=== PATIENT | male | born 1995 | race Caucasian/White ===

== ENCOUNTER 2022-05-05 00:10 | Emergency (ER) | payer SELFPAY ==
[2022-05-05 00:22] VITALS: BP 137/82; PULSE 87; RESP 18; TEMP 36.8; O2SAT 98; BMI 25.0
--- NOTE | 2022-05-05 01:49 | PC.NURSE ---
Pt. will not open eye for assessment until he calms down. Pt. rocking in bed and grabbing his hair. Pt. and girlfriend lying in bed.
--- NOTE | 2022-05-05 01:50 | ED_ITS ---
HPI - Eye Problem General: Chief complaint: Eye Problems Stated complaint: Left Eye Pain Time Seen by Provider: 05/05/22 01:32 Source: patient History of Present Illness: 27-year-old male who was moving a couch around 11 or midnight tonight. He had the couch up, and a spring struck him in the left thigh. He complains of blurry vision, although his vision is intact and improving since the injury. He also complains of some pain, over the eye and in the eye, not necessarily behind the eye. He has a swollen upper eyelid as well MD chief complaint: eye pain and eye injury Onset (ago): hour(s) Onset description: sudden Duration: constant Location: left eye Eye Symptoms: burning and blurry vision Place: home Mechanism: direct trauma Severity: moderate If Pain, Quality: burning and aching Context: other Associated symptoms: Reports headache(s) (mild); Denies fever(s) or vomiting Treatments Prior to Arrival: other Review of Systems Const: Denies: fever(s) Eyes: Reports: blurry vision and eye discomfort; Denies: photophobia or eye discharge ENMT: Denies: throat pain Card: Denies: chest pain GI: Denies: vomiting Neuro: Reports: headache(s) (mild) PFS ED PFSH: Medical History No pertinent family history No pertinent past medical history Physical Exam 2 Const: GENERAL APPEARANCE: cooperative and anxious ORIENTATION/CONSCIOUSNESS: Yes awake, Yes oriented to person, Yes oriented to place and Yes oriented to time HENMT: COMMON NORMALS: normocephalic, atraumatic and Normal external nose present HEAD & SCALP: normocephalic and atraumatic FACE & SINUS: no edema NOSE: Normal external nose present and Normal nares present Eye: COMMON NORMALS: Equal, round and reactive pupils present and EOMs intact bilaterally GENERAL EYE: normal light reflex VISUAL MONTERO: No peripheral vision loss and No central vision loss ALIGNMENT: Yes alignment normal EYELID: eyelid abnormality left upper eyelid (small abrasion with ecchymosis) erythema and tenderness CONJUNCTIVA: Yes conjunctival abnormal positive left conjunctival injection; without subconjunctival hemmorhages CORNEA: Yes corneas normal PUPIL: Yes Equal, round and reactive pupils present EOM: Yes EOM abnormal DIRECT OPHTHALMOSCOPY: Yes normal light reflex Neck/C-Spine: COMMON NORMALS: full ROM GENERAL: Yes trachea midline Chest: COMMONS NORMALS: normal inspection of the chest Resp: COMMON NORMALS: normal respiratory effort Cardio: COMMON NORMALS: regular rate and regular rhythm RATE: regular rate RHYTHM: regular rhythm Neuro: SENSORIUM/ORIENTATION: Yes oriented to person, Yes oriented to place and Yes oriented to time Course Vital Signs: Vital signs: Vital Signs Temperature 98.3 F 05/05/22 00:22 Pulse Rate 87 05/05/22 00:22 Respiratory Rate 18 05/05/22 00:22 Blood Pressure 137/82 05/05/22 00:22 Pulse Oximetry 98 05/05/22 00:22 Oxygen Delivery Me thod 05/05/22 00:22 MDM - Eye Problem Medical Decision Making No sign of globe injury on exam. No pupil irregularity. Good red reflex of his retina. Vision is intact. Pupil is reactive. Extraocular muscles are normal. He does have some eyelid swelling. Ophthalmology follow-up Discharge Plan Discharge Patient Disposition: Home Clinical Impression: Contusion, eyelid Qualifiers: Encounter type: subsequent encounter Laterality: left Qualified Code(s): S00.12XD - Contusion of left eyelid and periocular area, subsequent encounter Contusion of eye, left Qualifiers: Encounter type: subsequent encounter Qualified Code(s): S05.12XD - Contusion of eyeball and orbital tissues, left eye, subsequent encounter Condition: Stable Prescriptions: No Action Maxitrol 3.5mg/mL-10,000 unit/mL-0.1 % drops,suspension 1 drp ophthalmic (eye) Q8H 5 Days Qty: 5 0RF Rx Instructions: 1 drop in left eye Q8 for the next 5 days. Discharge Orders: Discharge ED (Routine); Ordered 05/05/22 Ordered By: Chencho Gore Referrals: Weston Farias MD [Physician] - 1-3 days Discharge Diet: Advance as tolerated Activity Restrictions/Additional Instructions: Sleep with the head of your bed elevated for the next week. Use drops every 6 hours while awake for the first 36 hours, then as needed. Follow-up with ophthalmology next week. Call on Saturday for an appointment. The number is listed above. 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
[2022-05-05] MEDS: ketorolac 0.5% Op 5 mL Btl 1 DROP EYE-LEFT (02:41)
== END 2022-05-05 02:44 | disposition home or self-care (01) ==
PROVIDERS: Emergency Provider Emergency Medicine
DX: S00.12XA Contusion of left eyelid and periocular area, initial encounter (principal); S05.12XA Contusion of eyeball and orbital tissues, left eye, initial encounter; W20.8XXA Other cause of strike by thrown, projected or falling object, initial encounter
CPT/HCPCS: 99283

== ENCOUNTER 2022-05-05 22:44 | Emergency (ER) | payer SELFPAY ==
[2022-05-05 22:59] VITALS: BP 134/89; PULSE 66; RESP 16; TEMP 36.6; O2SAT 99; BMI 25.0
--- NOTE | 2022-05-06 00:44 | W.ED.EYEPROB ---
HPI - Eye Problem General: Chief complaint: Eye Problems Stated complaint: Eye drainage Time Seen by Provider: 05/06/22 00:28 History of Present Illness: Patient is a 27-year-old male comes to the ED with left eye complaint. Patient was seen here in the ED last night on May 05 for same complaint. Patient had a spring from a couch mattress hit him in the left eye. He was diagnosed with a contusion of left eye and left eyelid was discharged home. Today he comes into the ED because he had some clear drainage out of his left eye and a little bit of clear drainage out of his nose today. Denies any other acute change with left eye. Denies any change in vision. Just wanted to get it checked out. Eye pain has improved. He is set up to go to eye clinic and see Dr. Farias on Saturday morning. Associated symptoms: Denies fever(s), headache(s), nausea, neck pain or vomiting Review of Systems Const: Denies: fever(s), chills or fatigue Eyes: Reports: eye discomfort (Left eye) and eye discharge (Left eye); Denies: change in vision ENMT: Denies: throat pain, odynophagia, nasal discharge or nasal congestion Card: Denies: chest pain, palpitations, edema, swelling of feet/ankles, dyspnea on exertion or orthopnea Resp: Denies: dyspnea, productive cough or non-productive cough GI: Denies: abdominal pain, nausea, vomiting, diarrhea, constipation or hematochezia : Denies: flank pain, difficulty urinating, dysuria or hematuria Musc: Denies: neck pain, back pain or extremity swelling Skin/Breast: Denies: rash or new lesions Neuro: Denies: headache(s), numbness in extremities or weakness in extremities [facility] ED PFSH: Medical History No pertinent family history No pertinent past medical history Physical Exam Const: COMMON NORMALS: no acute distress, patient oriented x3 and alert GENERAL APPEARANCE: cooperative HENMT: COMMON NORMALS: normocephalic and Normal external nose present HEAD & SCALP: normocephalic NOSE: Normal external nose present and No nasal discharge present; no Epistaxis present MOUTH: Normal oral and palatal mucosa present THROAT: posterior oropharynx normal and uvula midline Eye: COMMON NORMALS: Equal, round and reactive pupils present and EOMs intact bilaterally PERIORBITAL: periorbital findings abnormal positive left periorbital swelling and periorbital erythema EYELID: eyelid abnormality left upper eyelid swelling and tenderness CONJUNCTIVA: Yes conjunctival abnormal positive left conjunctival injection PUPIL: Yes Equal, round and reactive pupils present OTHER: No visible drainage out of left eye. Neck/C-Spine: COMMON NORMALS: supple GENERAL: Yes normal visual inspection Resp: COMMON NORMALS: normal respiratory effort, No retractions, No use of accessory muscles and clear to auscultation bilaterally AUSCULTATION: clear to auscultation bilaterally Cardio: COMMON NORMALS: regular rate, regular rhythm, S1 normal heart sound present, S2 normal heart sound present, No gallops present (Cardio), No clicks present (Cardio), No murmurs present (Cardio) and Peripheral pulses 2+ throughout RATE: regular rate RHYTHM: regular rhythm HEART SOUNDS: S1 normal heart sound present and S2 normal heart sound present PERIPHERAL PULSES: Peripheral pulses 2+ throughout GI: COMMON NORMALS: Normal to inspection, nondistended, normoactive bowel sounds present, Soft to palpation, non-tender and no masses PALPATION: Yes Soft to palpation : COMMON NORMALS: Yes no CVA tenderness BLADDER/KIDNEY EXAM: Yes no CVA tenderness Back/Pelvis: COMMON NORMALS: no CVA tenderness Extremity: COMMON NORMALS: normal to inspection Neuro: COMMON NORMALS: patient oriented x3 SENSORIUM/ORIENTATION: Yes alert GAIT: Yes Normal gait present Skin: GENERAL SKIN EXAM: dry skin Course Vital Signs: Vital signs: Vital Signs Temperature 97.9 F 05/05/22 22:59 Pulse Rate 66 05/05/22 22:59 Respiratory Rate 16 05/05/22 22:59 Blood Pressure 134/89 05/05/22 22:59 Pulse Oximetry 99 05/05/22 22:59 Oxygen Delivery Me thod 05/05/22 22:59 MDM - Eye Problem Medical Decision Making Patient is a 27-year-old male comes to the ED with left eye complaint. Patient was seen here in the ED last night on May 05 for same complaint. Patient had a spring from a couch mattress hit him in the left eye. He was diagnosed with a contusion of left eye and left eyelid was discharged home. Today he comes into the ED because he had some clear drainage out of his left eye and a little bit of clear drainage out of his nose today. Denies any other acute change with left eye. Denies any change in vision. Vitals are stable. Exam of patient shows left periorbital swelling along with left upper eyelid swelling and tenderness. He has conjunctival injection of the left. No visible drainage in the left eye. Rest of exam is benign patient was given a dose of Maxitrol drops here in the ED and was discharged home with some Maxitrol eyedrops. He was told to follow-up with Dr. Farias at the eye clinic on Saturday. Patient understood and agreed with plan. Discharge Plan Discharge Patient Disposition: Home Clinical Impression: Contusion, eyelid Qualifiers: Encounter type: subsequent encounter Laterality: left Qualified Code(s): S00.12XD - Contusion of left eyelid and periocular area, subsequent encounter Contusion of eye, left Qualifiers: Encounter type: subsequent encounter Qualified Code(s): S05.12XD - Contusion of eyeball and orbital tissues, left eye, subsequent encounter Condition: Stable Prescriptions: New Maxitrol 3.5mg/mL-10,000 unit/mL-0.1 % drops,suspension 1 drp ophthalmic (eye) Q8H 5 Days Qty: 5 0RF Rx Instructions: 1 drop in left eye Q8 for the next 5 days. Discharge Orders: Discharge ED (Routine); Ordered 05/06/22 Ordered By: Robin Estevez Discharge Diet: Regular Discharge Activity: Resume usual activity Activity Restrictions/Additional Instructions: Follow-up with Dr. Farias at the eye clinic on SaturdayMay 07 for further evaluation of left eye. Continue taking all medications as previously prescribed. Return to the ER or your medical provider if condition worsens. Please read and understand discharge instructions. Thank you for choosing [facility] for your healthcare needs today. Please realize this is an emergency room and that we are providing you with a medical screening exam and this may not be complete and all inclusive of all the testing and or work up that you may need to determine your ailment or severity of your illness. It is very important that you follow up as instructed or that you return to the Emergency Department should you have concerns or if your condition changes or worsens in any way. Coding Level of Care Code ED Biomedical Photographer for [facility] [facility] Exam Comprehensive
[2022-05-06] MEDS: neomycin-poly-dex Op 5 mL Btl 2 DROP EYE-LEFT (01:04)
== END 2022-05-06 01:05 | disposition home or self-care (01) ==
PROVIDERS: Emergency Provider Physician Assistant
DX: S00.12XA Contusion of left eyelid and periocular area, initial encounter (principal); S05.12XA Contusion of eyeball and orbital tissues, left eye, initial encounter; W20.8XXA Other cause of strike by thrown, projected or falling object, initial encounter
CPT/HCPCS: 99283

== ENCOUNTER 2022-12-06 18:59 | Emergency (ER) | payer MEDICAID, SELFPAY ==
--- NOTE | 2022-12-06 19:06 | CTR_ITS ---
PROCEDURE INFORMATION: Exam: CT Head Without Contrast Exam date and time: 12/06/2022 7:54 PM Age: 27 years old Clinical indication: Other: Seizure TECHNIQUE: Imaging protocol: Computed tomography of the head without contrast. Radiation optimization: All CT scans at this facility use at least one of these dose optimization techniques: automated exposure control; mA and/or kV adjustment per patient size (includes targeted exams where dose is matched to clinical indication); or iterative reconstruction. REPORTING DATA: Count of CT and Cardiac NM exams in prior 12 months: This patient has received 0 known CTs and 0 known cardiac nuclear medicine studies in the 12 months prior to the current study. COMPARISON: CT head wo con* [id number] 01/06/2016 8:34 PM RADIATION DOSE METRICS: Total DLP (mGy-cm): 1071.48 FINDINGS: Brain: No focal hemorrhage or midline shift is identified. Cerebral ventricles: No ventriculomegaly or evidence of acute hydrocephalus. Paranasal sinuses: The partially assessed sinuses are grossly clear. Only minimal bilateral ethmoid air cell mucosal thickening. Mastoid air cells: Visualized mastoid air cells are well aerated. Bones/joints: No displaced skull fracture is noted. Soft tissues: Unremarkable. CT/CT head wo con* [id number] IMPRESSION: No acute intracranial abnormality.
--- NOTE | 2022-12-06 19:06 | ECG_ITS ---
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 Measurements Intervals [place] Rate: 94 P: 56 [place]: 147 QRS: 84 QRSD: 89 T: 53 QT: 325 QTc: 407 Interpretive Statements SINUS RHYTHM No previous ECG available for comparison Electronically Signed On 12-06-2022 22:54:39 CDT by Kavon Fuentes M.D. [id number]
[2022-12-06 19:07] VITALS: BP 138/87; PULSE 93; RESP 18; TEMP 36.6; O2SAT 99; BMI 25.0
--- NOTE | 2022-12-06 19:07 | ED_ITS ---
HPI - Seizure General: Chief Complaint: Seizure Stated Complaint: SEIZURES Time Seen by Provider: 12/06/22 19:02 Source: patient and EMS Mode of arrival: EMS Limitations: no limitations History of Present Illness: HPI Narrative: 27-year-old male who is here from long-term he had had a possible seizure there he states he felt quite anxious per the long-term very appear to have some shaking and a short postictal. He is now awake he complains of a slight headache and some neck pain he denies any chest pain denies any vomiting or diarrhea. Associated symptoms: Deny chest pain, chills or fever(s) Review of Systems Const: Denies: fever(s), chills, body aches or change in appetite Eyes: Denies: blurry vision or eye discomfort ENMT: Denies: throat pain or dental pain Card: Denies: chest pain Resp: Denies: dyspnea GI: Denies: abdominal pain, nausea, vomiting or diarrhea : Denies: dysuria Musc: Denies: neck pain or back pain Skin/Breast: Denies: rash Neuro: Reports: seizure-like activity Psych: Denies: depression Lupillo/Lymph: Denies: easy bruising All/Imm: Denies: urticaria PFSH ED PFSH: Medical History No pertinent family history No pertinent past medical history Social History (Updated 12/06/22 @ 19:08 by Rory Peters MD) Substance/Drug Use: unknown Physical Exam Const: COMMON NORMALS: no acute distress, patient oriented x3 and healthy appearing HENMT: COMMON NORMALS: normocephalic and atraumatic HEAD & SCALP: normocephalic and atraumatic Eye: COMMON NORMALS: Equal, round and reactive pupils present and EOMs intact bilaterally PUPIL: Yes Equal, round and reactive pupils present Neck/C-Spine: COMMON NORMALS: full ROM and supple Chest: COMMONS NORMALS: normal inspection of the chest and normal palpation of entire chest wall Resp: COMMON NORMALS: normal respiratory effort, No retractions, No use of accessory muscles and clear to auscultation bilaterally AUSCULTATION: clear to auscultation bilaterally Cardio: COMMON NORMALS: regular rate, regular rhythm and No murmurs present (Cardio) RATE: regular rate RHYTHM: regular rhythm GI: COMMON NORMALS: Normal to inspection, nondistended, normoactive bowel sounds present, Soft to palpation, non-tender and no masses PALPATION: Yes Soft to palpation Extremity: COMMON NORMALS: normal to inspection and full ROM Neuro: COMMON NORMALS: patient oriented x3, moves all extremities and no focal motor deficits Psych: COMMON NORMALS: mental status grossly normal, Normal thought process present and cooperative THOUGHT PROCESS: Normal thought process present Skin: COMMON NORMALS: no rashes or lesions noted and no wounds GENERAL SKIN EXAM: no rashes or lesions noted Course Vital Signs: Vital signs: Vital Signs Temperature 97.8 F 12/06/22 19:07 Pulse Rate 93 12/06/22 20:41 Respiratory Rate 16 12/06/22 20:41 Blood Pressure 153/84 12/06/22 20:41 Pulse Oximetry 94 12/06/22 20:41 Oxygen Delivery Me thod 12/06/22 19:14 MDM - Seizure MDM Narrative Medical decision making narrative: Patient presents here with a possible seizure he has been well-appearing here blood work CT head is normal he is stable for discharge back to long-term. Lab Data 12/06/22 18:49 12/06/22 18:49 Labs: Radiology Impressions Head CT 12/06/22 19:06 IMPRESSION: No acute intracranial abnormality. Laboratory Results WBC 6.8 10^3/uL (4.0-10.0) 12/06/22 18:49 RBC 5.92 10^6/uL (4.1-5.3) H 12/06/22 18:49 Hgb 16.7 g/dL (11.7-16.6) H 12/06/22 18:49 Hct 49.5 % (42.0-52.0) 12/06/22 18:49 MCV 83.6 fl (80-94) 12/06/22 18:49 MCH 28.2 pg (28.0-34.0) 12/06/22 18:49 MCHC 33.7 g/dL (30.0-36.0) 12/06/22 18:49 RDW 12.4 % (12.1-15.1) 12/06/22 18:49 Plt Count 352 10^3/cmm (130-400) 12/06/22 18:49 MPV 9.8 fL (7.4-10.4) 12/06/22 18:49 Neut % (Auto) 40.5 % 12/06/22 18:49 Lymph % (Auto) 46.1 % 12/06/22 18:49 Terrell % (Auto) 10.4 % 12/06/22 18:49 Eos % (Auto) 2.6 % 12/06/22 18:49 Baso % (Auto) 0.3 % 12/06/22 18:49 Neut # (Auto) 2.76 10^3/uL (1.8-7.7) 12/06/22 18:49 Lymph # (Auto) 3.2 10^3/uL (0.8-4.8) 12/06/22 18:49 Terrell # (Auto) 0.7 10^3/uL (0.2-0.9) 12/06/22 18:49 Eos # (Auto) 0.2 10^3/uL (0.0-0.8) 12/06/22 18:49 Baso # (Auto) 0.0 10^3/uL (0.0-0.1) 12/06/22 18:49 Nucleated RBC % (auto) 0 % 12/06/22 18:49 Nucleated RBCs # 0.0 /100WBC 12/06/22 18:49 Sodium 141 mmol/L (136-145) 12/06/22 18:49 Potassium 3.9 mmol/L (3.5-5.1) 12/06/22 18:49 Chloride 101 mmol/L (98-107) 12/06/22 18:49 Carbon Dioxide 25 mmol/L (22-29) 12/06/22 18:49 Anion Gap 18.9 (5-19) 12/06/22 18:49 BUN 14 mg/dL (6-20) 12/06/22 18:49 Creatinine 1.2 mg/dL (0.7-1.2) 12/06/22 18:49 GFR Calculation 71.6 mL/min (90-130) L 12/06/22 18:49 Glucose 93 mg/dL (65-115) 12/06/22 18:49 Calculated Osmolality 292 mOsm/kg (285-295) 12/06/22 18:49 Calcium 9.7 mg/dL (8.5-10.5) 12/06/22 18:49 Total Bilirubin 0.4 mg/dL (0.15-1.2) 12/06/22 18:49 AST 18 U/L (0-40) 12/06/22 18:49 ALT 24 U/L (0-41) 12/06/22 18:49 Alkaline Phosphatase 105 U/L (40-130) 12/06/22 18:49 Total Protein 7.8 g/dL (6.6-8.7) 12/06/22 18:49 Albumin 4.5 g/dL (3.5-5.2) 12/06/22 18:49 Globulin 3.3 g/dL (1.3-4.6) 12/06/22 18:49 EKG Data EKG 1: Attestation: I personally reviewed and interpreted this EKG as follows: EKG interpretation date: 12/06/22 EKG interpretation time: 19:20 Interpretation: nsr hr [address] or t wave abnormalities qrs 89 qtc 377 Discharge Plan Discharge Patient Disposition: Home Clinical Impression: Generalized seizure Prescriptions: No Action mupirocin 2 % ointment 1 applic topical BID 21 Days Qty: 22 2RF Rx Instructions: and apply to lesions on face Discharge Orders: Discharge ED (Routine); Ordered 12/06/22 Ordered By: Rory Peters Discharge Diet: Advance as tolerated Discharge Activity: Resume usual activity Patient Instructions: Seizures Coding Level 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
[2022-12-06 19:14] VITALS: BP 138/87; PULSE 104; RESP 16; O2SAT 99
[2022-12-06] MEDS: LORazepam 2 mg/mL INJ 1 mL 1 MG IVP (19:22)
[2022-12-06 19:44] LABS: Basophils % 0.3 %; Eosinophils # 0.2 10^3/uL (0.0-0.8); Eosinophils % 2.6 %; Hematocrit 49.5 % (42.0-52.0); Hemoglobin 16.7 g/dL (11.7-16.6); Lymphocytes # 3.2 10^3/uL (0.8-4.8); Lymphocytes % 46.1 %; Mean Corpuscular HGB Conc 33.7 g/dL (30.0-36.0); Mean Corpuscular Hemoglobin 28.2 pg (28.0-34.0); Mean Corpuscular Volume 83.6 fl (80-94); Mean Platelet Volume 9.8 fL (7.4-10.4); Monocytes # 0.7 10^3/uL (0.2-0.9); Monocytes % 10.4 %; Neutrophils # 2.76 10^3/uL (1.8-7.7); Neutrophils % 40.5 %; Nucleated Red Blood Cells % 0 %; Platelet Count 352 10^3/cmm (130-400); Red Blood Count 5.92 10^6/uL (4.1-5.3); Red Cell Distribution Width 12.4 % (12.1-15.1); White Blood Count 6.8 10^3/uL (4.0-10.0)
[2022-12-06 20:03] LABS: Alanine Aminotransferase 24 U/L (0-41); Albumin Level 4.5 g/dL (3.5-5.2); Alkaline Phosphatase 105 U/L (40-130); Anion Gap 18.9 (5-19); Aspartate Amino Transferase 18 U/L (0-40); Blood Urea Nitrogen 14 mg/dL (6-20); Calcium 9.7 mg/dL (8.5-10.5); Carbon Dioxide 25 mmol/L (22-29); Chloride 101 mmol/L (98-107); Globulin 3.3 g/dL (1.3-4.6); Glomerular Filtration Rate 71.6 mL/min (90-130); Glucose 93 mg/dL (65-115); Osmolality Calculated 292 mOsm/kg (285-295); Potassium 3.9 mmol/L (3.5-5.1); Sodium 141 mmol/L (136-145); Total Bilirubin 0.4 mg/dL (0.15-1.2); Total Protein 7.8 g/dL (6.6-8.7)
[2022-12-06 20:41] VITALS: BP 153/84; PULSE 93; RESP 16; O2SAT 94
--- NOTE | 2022-12-12 13:26 | DCPLANNER ---
Addendum entered by Chelsie Cruz 12/18/22 15:14: institutional asset manager called patient due to no primary care physician - no answer at this time Original Note: institutional asset manager called patient due to no primary care physician - no answer at this time
== END 2022-12-06 20:44 | disposition home or self-care (01) ==
PROVIDERS: Emergency Provider Emergency Medicine
DX: G40.89 Other seizures (principal)
CPT/HCPCS: 70450; 80053; 85025; 93005; 96374; 99285; J2060

== ENCOUNTER 2022-12-07 09:17 | Emergency (ER) | payer MEDICAID, SELFPAY ==
[2022-12-07 09:30] VITALS: BP 114/82; PULSE 94; RESP 15; TEMP 36.8; O2SAT 100; BMI 26.2
--- NOTE | 2022-12-07 09:30 | ED_ITS ---
HPI - Seizure General: Chief Complaint: Seizure Stated Complaint: seizure activity Time Seen by Provider: 12/07/22 09:22 Source: patient Mode of arrival: EMS History of Present Illness: HPI Narrative: 27-year-old male presents emergency room from local half-way. He was seen yesterday with complaints of possible seizure lab work and head CT were negative he was discharged back. Today he reports having an episode of feeling like the moffett were closing in he was breathing rapidly and he passed out when he woke up he was recovered shortly there was no witnessed tonic-clonic activity. No vomiting no diarrhea no loss of bowel or bladder control no tongue biting. He is not postictal at this time. MD complaint: possible seizure Onset (ago): minute(s) Witnessed: Yes - by Bystander Trauma: No Seizure History: No Associated symptoms: Deny chest pain, chills, confusion, cough, diaphoresis, fever(s), anorexia, malaise, rash, short of breath, syncope or weakness Review of Systems Const: Denies: fever(s), chills, malaise or diaphoresis ENMT: Denies: throat pain, ear or mastoid pain, nasal discharge or nasal congestion Card: Denies: chest pain or syncope Resp: Denies: dyspnea, productive cough or non-productive cough GI: Denies: abdominal pain, nausea, vomiting, hematemesis, coffee ground emesis, diarrhea, constipation, bloating, hematochezia or melena : Denies: flank pain, dysuria, urinary frequency or urinary urgency Skin/Breast: Denies: rash or pruritus Neuro: Denies: confusion PFSH ED PFSH: Medical History No pertinent family history No pertinent past medical history Course Vital Signs: Vital signs: Vital Signs Temperature 98.3 F 12/07/22 09:30 Pulse Rate 94 12/07/22 11:06 Respiratory Rate 16 12/07/22 12:00 Blood Pressure 125/75 12/07/22 12:00 Pulse Oximetry 95 12/07/22 12:00 Oxygen Delivery Me thod 12/07/22 09:30 MDM - Seizure MDM Narrative Medical decision making narrative: Labs reviewed previous imaging reviewed. CPKs normal patient was not particularly postictal when he arrived. Discussed with Dr. Rodriguez. Initially patient arrived we gave a gram of Keppra based on the reported history. Dr. Rodriguez does not advise discharging home on any antiseizure medications. These episodes are reported arced still questionable for actually seizure activity. Discussed with the patient may be conversion disorder anxiety. Would not recommend anticonvulsants based on discussing with Dr. Rodriguez. We will set him up for an outpatient EEG and follow-up with neurology. Medical Records Attestation: I reviewed the patient's medical records. Lab Data Attestation: I reviewed the patient's lab results. 12/07/22 09:39 12/07/22 09:39 Labs: Laboratory Results WBC 4.6 10^3/uL (4.0-10.0) 12/07/22 09:39 RBC 5.34 10^6/uL (4.1-5.3) H 12/07/22 09:39 Hgb 15.3 g/dL (11.7-16.6) 12/07/22 09:39 Hct 46.2 % (42.0-52.0) 12/07/22 09:39 MCV 86.5 fl (80-94) 12/07/22 09:39 MCH 28.7 pg (28.0-34.0) 12/07/22 09:39 MCHC 33.1 g/dL (30.0-36.0) 12/07/22 09:39 RDW 12.7 % (12.1-15.1) 12/07/22 09:39 Plt Count 274 10^3/cmm (130-400) 12/07/22 09:39 MPV 9.9 fL (7.4-10.4) 12/07/22 09:39 Neut % (Auto) 43.9 % 12/07/22 09:39 Lymph % (Auto) 43.5 % 12/07/22 09:39 Catron % (Auto) 9.1 % 12/07/22 09:39 Eos % (Auto) 3.3 % 12/07/22 09:39 Baso % (Auto) 0.2 % 12/07/22 09:39 Neut # (Auto) 2.02 10^3/uL (1.8-7.7) 12/07/22 09:39 Lymph # (Auto) 2.0 10^3/uL (0.8-4.8) 12/07/22 09:39 Catron # (Auto) 0.4 10^3/uL (0.2-0.9) 12/07/22 09:39 Eos # (Auto) 0.2 10^3/uL (0.0-0.8) 12/07/22 09:39 Baso # (Auto) 0.0 10^3/uL (0.0-0.1) 12/07/22 09:39 Nucleated RBC % (auto) 0 % 12/07/22 09:39 Nucleated RBCs # 0.0 /100WBC 12/07/22 09:39 Sodium 142 mmol/L (136-145) 12/07/22 09:39 Potassium 4.2 mmol/L (3.5-5.1) 12/07/22 09:39 Chloride 104 mmol/L (98-107) 12/07/22 09:39 Carbon Dioxide 28 mmol/L (22-29) 12/07/22 09:39 Anion Gap 14.2 (5-19) 12/07/22 09:39 BUN 15 mg/dL (6-20) 12/07/22 09:39 Creatinine 1.1 mg/dL (0.7-1.2) 12/07/22 09:39 GFR Calculation 79.1 mL/min (90-130) L 12/07/22 09:39 Glucose 98 mg/dL (65-115) 12/07/22 09:39 Calculated Osmolality 295 mOsm/kg (285-295) 12/07/22 09:39 Calcium 8.6 mg/dL (8.5-10.5) 12/07/22 09:39 Total Bilirubin 0.4 mg/dL (0.15-1.2) 12/07/22 09:39 AST 14 U/L (0-40) 12/07/22 09:39 ALT 19 U/L (0-41) 12/07/22 09:39 Alkaline Phosphatase 88 U/L (40-130) 12/07/22 09:39 Creatine Kinase 52 U/L (39-308) 12/07/22 09:39 Total Protein 6.7 g/dL (6.6-8.7) 12/07/22 09:39 Albumin 4.2 g/dL (3.5-5.2) 12/07/22 09:39 Globulin 2.5 g/dL (1.3-4.6) 12/07/22 09:39 Discharge Plan Discharge Patient Disposition: Home Clinical Impression: Seizure-like activity, Conversion disorder Condition: Stable Prescriptions: No Action Benadryl 50 mg Capsule 50 - 100 mg PO .ONE TIME DOSE Tylenol Ex Str Rapid Release 500 mg Tablet 1,000 mg PO Q6H PRN (Reason: Pain) Pepto-Bismol 262 mg Tablet,Chewable 524 mg PO .ONCE Discharge Orders: Discharge ED (Routine); Ordered 12/07/22 Ordered By: Jono Clarke Discharge Diet: Usual diet Discharge Activity: Increase activity as tolerated Patient Instructions: Opioid Safety, Pain Management Activity Restrictions/Additional Instructions: You were seen today for reports of seizure-like activity. Your laboratory tests and exam were not completely consistent with seizures. And previous head CT was negative. We reviewed your case with the on-call neurologist they recommend no medications at this time feel you can be discharged and recommend an outpatient EEG. Coding Level of Care Code ED Detective Supervisor for Blesis[facility] Gracia
--- NOTE | 2022-12-07 09:36 | PC.NURSE ---
seizure pads applied to bed rails.
--- NOTE | 2022-12-07 09:37 | PC.NURSE ---
PT ARRIVED WITH PAZ. PT LEFT IN HANDCUFFS PER PAZ.
--- NOTE | 2022-12-07 09:54 | PC.NURSE ---
PAZ STATES PT HAD 4 OTHER SEIZURES THROUGHOUT THE NIGHT LAST NIGHT.
[2022-12-07 09:56] LABS: Basophils % 0.2 %; Eosinophils # 0.2 10^3/uL (0.0-0.8); Eosinophils % 3.3 %; Hematocrit 46.2 % (42.0-52.0); Hemoglobin 15.3 g/dL (11.7-16.6); Lymphocytes % 43.5 %; Mean Corpuscular HGB Conc 33.1 g/dL (30.0-36.0); Mean Corpuscular Hemoglobin 28.7 pg (28.0-34.0); Mean Corpuscular Volume 86.5 fl (80-94); Mean Platelet Volume 9.9 fL (7.4-10.4); Monocytes # 0.4 10^3/uL (0.2-0.9); Monocytes % 9.1 %; Neutrophils # 2.02 10^3/uL (1.8-7.7); Neutrophils % 43.9 %; Nucleated Red Blood Cells % 0 %; Platelet Count 274 10^3/cmm (130-400); Red Blood Count 5.34 10^6/uL (4.1-5.3); Red Cell Distribution Width 12.7 % (12.1-15.1); White Blood Count 4.6 10^3/uL (4.0-10.0)
[2022-12-07 10:06] VITALS: PULSE 95; RESP 16; O2SAT 98
[2022-12-07 10:08] LABS: Alanine Aminotransferase 19 U/L (0-41); Albumin Level 4.2 g/dL (3.5-5.2); Alkaline Phosphatase 88 U/L (40-130); Anion Gap 14.2 (5-19); Aspartate Amino Transferase 14 U/L (0-40); Blood Urea Nitrogen 15 mg/dL (6-20); Calcium 8.6 mg/dL (8.5-10.5); Carbon Dioxide 28 mmol/L (22-29); Chloride 104 mmol/L (98-107); Creatine Phosphokinase 52 U/L (39-308); Globulin 2.5 g/dL (1.3-4.6); Glomerular Filtration Rate 79.1 mL/min (90-130); Glucose 98 mg/dL (65-115); Osmolality Calculated 295 mOsm/kg (285-295); Potassium 4.2 mmol/L (3.5-5.1); Sodium 142 mmol/L (136-145); Total Bilirubin 0.4 mg/dL (0.15-1.2); Total Protein 6.7 g/dL (6.6-8.7)
[2022-12-07 11:06] VITALS: PULSE 94; RESP 16; O2SAT 98
[2022-12-07 12:00] VITALS: BP 125/75; RESP 16; O2SAT 95
--- NOTE | 2022-12-10 14:12 | DCPLANNER ---
Addendum entered by Chelsie Cruz 01/29/23 15:21: Patient had a follow up appointment scheduled with neurology - patient did not attend appointment. Addendum entered by Chelsie Cruz 12/13/22 08:07: Patient has a follow up appointment scheduled for Monday, January 23, 2023 at 10:[address] Rodriguez at neurology. Original Note: manager english had message to schedule a follow up appointment for patient with neurology and an outpatient sleep deprived EEG. manager english sent patients information to the front office staff at neurology. Patients information will be printed and reviewed. Clinic will call patient with appointment information. manager english faxed signed order for the EEG to neurology. Clinic will call patient with appointment information.
--- NOTE | 2022-12-12 13:33 | DCPLANNER ---
Addendum entered by Chelsie Cruz 12/18/22 15:18: clerical manager called patient due to no primary care physician - no answer at this time Original Note: clerical manager called patient due to no primary care physician - no answer at this time
== END 2022-12-07 12:03 | disposition home or self-care (01) ==
PROVIDERS: Emergency Provider Family Medicine
DX: R56.9 Unspecified convulsions (principal); F44.4 Conversion disorder with motor symptom or deficit
CPT/HCPCS: 80053; 82550; 85025; 96365; 99284; J1953

== ENCOUNTER 2023-03-09 23:32 | Emergency (ER) | payer MEDICAID, SELFPAY ==
[2023-03-09 23:35] VITALS: BP 126/79; PULSE 85; RESP 16; TEMP 36.8; O2SAT 97
--- NOTE | 2023-03-10 01:30 | XRR_ITS ---
PROCEDURE INFORMATION: Exam: XR Right Finger(s) Exam date and time: 03/10/2023 1:37 AM Age: 28 years old Clinical indication: Injury or trauma; Right; Index finger; Patient HX: Laceration with swelling to 2nd finger to region of pip joint. ; Additional info: Index finger injury TECHNIQUE: Imaging protocol: Radiologic exam of the right fingers. Views: Minimum 2 views. COMPARISON: No relevant prior studies available. FINDINGS: Bones/joints: No acute fracture or reactive bony changes. Soft tissues: Swelling at the proximal interphalangeal joint. XR/XR finger RT min 2V 21139 IMPRESSION: Swelling at the proximal interphalangeal joint. No acute fracture or reactive bony changes.
[2023-03-10] MEDS: tetanus-dipt-pertussis 0.5 mL SDV IM (01:55)
[2023-03-10 02:00] VITALS: PULSE 71; RESP 14; O2SAT 97
[2023-03-10] MEDS: lidocaine 1% INJ 10 mL (per mL) 20 ML INJECTION (02:21)
--- NOTE | 2023-03-10 02:21 | PC.NURSE ---
lidocaine administered by Dr Gore
[2023-03-10] MEDS: oxyCODONE-APAP 5-325 mg Tablet 2 TAB PO (02:45)
[2023-03-10 02:55] VITALS: RESP 16; O2SAT 99
--- NOTE | 2023-03-10 05:42 | W.ED.EXTPRO ---
HPI - Extremity Problem General: Chief complaint: Extremity Injury, Upper Stated complaint: Rt hand-Finger cut Time Seen by Provider: 03/10/23 01:28 History of Present Illness: 28-year-old male who fell, his right hand went through a piece of wood. He sustained a laceration to his right index finger at the PIP. He complains of pain and swelling. Complaint: other Onset (ago): hour(s) Pain Consistency: constant Location: right and other (index finger) Quality: other Relieving factors: immobilization Exacerbating factors: other Associated symptoms: Deny chest pain or fever(s) Review of Systems Const: Denies: fever(s) Card: Denies: chest pain Resp: Denies: dyspnea GI: Denies: vomiting Skin/Breast: Reports: skin tenderness [facility] ED PFSH: Medical History No pertinent family history No pertinent past medical history Social History Smoking and tobacco status: never smoked Alcohol intake: never Substance/Drug Use: never Physical Exam Const: COMMON NORMALS: no acute distress GENERAL APPEARANCE: cooperative; not ill appearing and not frail appearing HENMT: COMMON NORMALS: normocephalic, atraumatic and Normal external nose present HEAD & SCALP: normocephalic and atraumatic FACE & SINUS: normal facial exam and face symmetric NOSE: Normal external nose present Eye: COMMON NORMALS: Equal, round and reactive pupils present and EOMs intact bilaterally PUPIL: Yes Equal, round and reactive pupils present Neck/C-Spine: GENERAL: Yes trachea midline Chest: CHEST: Yes Symmetrical chest wall rise Resp: COMMON NORMALS: normal respiratory effort, No retractions, No use of accessory muscles and clear to auscultation bilaterally AUSCULTATION: clear to auscultation bilaterally Cardio: COMMON NORMALS: regular rate and regular rhythm RATE: regular rate RHYTHM: regular rhythm GI: COMMON NORMALS: Normal to inspection, nondistended, normoactive bowel sounds present Extremity: NARRATIVE EXTREMITY EXAM: Examination of the right hand reveals a 1.5 centimeter laceration to the dorsum of the index finger at the PIP. Bleeding is controlled. Swelling is noted at the PIP. No deformity. Neuro: IRENE COMA SCALE: document GCS findings [place] coma scale eye opening: Spontaneous [place] coma scale verbal response: Orientated Irene coma scale motor response: Obey commands Irene coma scale total score: 15 SENSORY EXAM: Yes extremities (intact) Psych: COMMON NORMALS: speech normal SPEECH: Yes normal speech Skin: COMMON NORMALS: no rashes or lesions noted GENERAL SKIN EXAM: no rashes or lesions noted Procedures Laceration Laceration 1: Side (If applicable): right Size (cm): 1.5 Description: flap Depth: simple, single layer Local Anesthetic: lidocaine 1% Amount of anesthesia used (mL): 3 Pre-repair: wound explored, irrigated extensively, deep structures intact and extensive debridement Skin layer closed with: nylon Size (cm): 5-0 Number of sutures: 5 Technique: simple, interrupted Course Vital Signs: Vital signs: Vital Signs Temperature 98.2 F 03/09/23 23:35 Pulse Rate 71 03/10/23 02:00 Respiratory Rate 16 03/10/23 02:55 Blood Pressure 126/79 03/09/23 23:35 Pulse Oximetry 99 03/10/23 02:55 Oxygen Delivery Me thod Room Air 03/10/23 02:00 MDM - Extremity (Nontraumatic) Medical Decision Making X-ray reveals no foreign body, no fracture. Laceration is repaired with sutures. Tetanus is updated. He tolerated well. Outpatient follow-up for wound check and suture removal. Lab Data Radiology Impressions Finger X-Ray 03/10/23 01:30 IMPRESSION: Swelling at the proximal interphalangeal joint. No acute fracture or reactive bony changes. Discharge Plan Discharge Patient Disposition: Home Clinical Impression: Laceration of finger Condition: Stable Prescriptions: No Action Benadryl 50 mg Capsule 50 - 100 mg PO .ONE TIME DOSE Tylenol Ex Str Rapid Release 500 mg Tablet 1,000 mg PO Q6H PRN (Reason: Pain) Pepto-Bismol 262 mg Tablet,Chewable 524 mg PO .ONCE Discharge Orders: Discharge ED (Routine); Ordered 03/10/23 Ordered By: Chencho Gore Patient Instructions: Finger Laceration (ED) Activity Restrictions/Additional Instructions: Keep dry for 24 hours, then you may wash with soap and running water. Do not submerge in water until sutures are out. Sutures should come out in 7 to 10 days. Return for any problems. Ice can help with pain Coding Level of Care Code ED Log Snaker for Blessing Gracia
== END 2023-03-10 02:56 | disposition home or self-care (01) ==
PROVIDERS: Emergency Provider Emergency Medicine
DX: S61.210A Laceration without foreign body of right index finger without damage to nail, initial encounter (principal); W19.XXXA Unspecified fall, initial encounter; Z23 Encounter for immunization
CPT/HCPCS: 12001; 73140; 90715; 99283

== ENCOUNTER 2023-03-20 10:19 | Emergency (ER) | payer MEDICAID, SELFPAY ==
[2023-03-20 10:25] VITALS: BP 124/79; PULSE 90; RESP 16; TEMP 36.6; O2SAT 97; BMI 25.0
--- NOTE | 2023-03-20 10:52 | W.ED.EXTPRO ---
HPI - Extremity Problem General: Chief complaint: Extremity Problem,Nontraumatic Stated complaint: Right hand injury/swelling and stiches broke Time Seen by Provider: 03/20/23 10:29 Source: patient Mode of arrival: ambulatory Limitations: no limitations History of Present Illness: Patient is a 28-year-old male here for re-evaluation following a right index finger wound/laceration that was repaired here on 03/10. Patient states some of the stitches have broke and he is concerned about some wound dehiscence as well as swelling/some type of growth and redness. He denies numbness, tingling, loss of sensation. MD Complaint: extremity pain and extremity swelling Onset (ago): day(s) Pain Consistency: constant Location: right and upper extremity Radiation: none Relieving factors: nothing Exacerbating factors: nothing Associated symptoms: Reports no associated symptoms Review of Systems Musc: Reports: extremity pain (R index finger) [facility] ED PFSH: Medical History No pertinent family history No pertinent past medical history Social History Smoking and tobacco status: never smoked Alcohol intake: never Substance/Drug Use: never Physical Exam Const: COMMON NORMALS: no acute distress, average body habitus, no limitations, healthy appearing, alert and well nourished Extremity: GENERAL: Yes normal exam except as noted RIGHT UPPER EXTREMITY: Yes hand & digits OTHER: pt has some redness/swelling to dorsal R index PIP joint-he does maintain fairly good ROM and I clinically do not have any concern for tendon injury or septic PIP joint; several sutures no longer intact and there is some wound dehiscence; he has some type of granulomatous like formation/growth within the wound that he states is bothering him and wants it excised Neuro: SENSORIUM/ORIENTATION: Yes alert Course Vital Signs: Vital signs: Vital Signs Temperature 97.8 F 03/20/23 10:25 Pulse Rate 90 03/20/23 10:25 Respiratory Rate 16 03/20/23 10:25 Blood Pressure 124/79 03/20/23 10:25 Pulse Oximetry 97 03/20/23 10:25 Oxygen Delivery Me thod Room Air 03/20/23 10:25 MDM - Extremity (Nontraumatic) Medical Decision Making Patient here for re-evaluation of her right index finger laceration that was repaired approximately 10 days ago. He does have some wound dehiscence as well as the formation of some type of granulomatous growth. He has some redness and swelling present. He does maintain fairly good range of motion. I will go ahead and place him on Keflex. Sutures can be removed. He is requesting that I excise growth. I told him I am not going to cut around overlying a finger joint on an index finger on his dominant hand but that I can refer him to see Dr. Estevez. He is agreeable to this plan. Return to ED precautions given. Discharge Plan Discharge Patient Disposition: Home Clinical Impression: Injury of index finger Qualifiers: Encounter type: initial encounter Laterality: right Qualified Code(s): S69.91XA - Unspecified injury of right wrist, hand and finger(s), initial encounter Condition: Stable Prescriptions: New cephalexin 500 mg capsule 500 mg PO Q6H 7 Days Qty: 28 0RF No Action Benadryl 50 mg Capsule 50 - 100 mg PO .ONE TIME DOSE Tylenol Ex Str Rapid Release 500 mg Tablet 1,000 mg PO Q6H PRN (Reason: Pain) Pepto-Bismol 262 mg Tablet,Chewable 524 mg PO .ONCE Discharge Orders: Discharge ED (Routine); Ordered 03/20/23 Ordered By: Verónica Strong Coding Level of Care Code ED Clinical Lab Specialist for [facility] Gr[facility]
--- NOTE | 2023-03-20 11:06 | PC.NURSE ---
PT STATES HE PULLED 3 STITCHES OUT AT HOME, LEAVING 4 LEFT OF THE 7.
--- NOTE | 2023-03-20 12:35 | DCPLANNER ---
Addendum entered by Chelsie Cruz 03/22/23 09:04: unit manager received the following message regarding follow up appointment: attempt made to contact patient - number in chart states not in service. tried mom/step dad number on auth to discuss - not accepting msgs - will mail letter to call clinic to schedule cherry mcdermott (dr will supervising). If they can come in this morning we can see them at or saturday sometime w/ imelda. Original Note: unit manager had message to schedule a follow up appointment for patient with ortho. unit manager sent patients information to the front office staff at ortho. Patients information will be printed and reviewed. Clinic will call patient with appointment information.
--- NOTE | 2023-03-20 12:49 | DCPLANNER ---
hospice case manager called patient due to no primary care physician - no answer at this time, the number has been changed or disconnected.
== END 2023-03-20 11:09 | disposition home or self-care (01) ==
PROVIDERS: Emergency Provider Physician Assistant
DX: T81.33XA Disruption of traumatic injury wound repair, initial encounter (principal); X58.XXXA Exposure to other specified factors, initial encounter
CPT/HCPCS: 99281

== ENCOUNTER 2023-05-20 13:51 | Emergency (ER) | payer OTHER, MEDICAID, SELFPAY ==
[2023-05-20 14:03] VITALS: BP 144/93; PULSE 75; RESP 16; TEMP 36.6; O2SAT 100; BMI 25.7
--- NOTE | 2023-05-20 14:31 | W.ED.SKABFB ---
HPI - Skin/Abscess/Foreign Bdy General: Chief complaint: Extremity Injury, Upper Stated complaint: upper lip swelling Time Seen by Provider: 05/20/23 14:08 Source: patient Mode of arrival: ambulatory Limitations: no limitations History of Present Illness: Patient is a 28-year-old male who presents to ED today with a complaint of redness, swelling, pain to the right upper lip region that he noticed approximately 2 to 3 days ago. Patient states he has a known scar to the area from a previous dog bite 3 years ago and states for what ever reason the scar has seemed to become infected. He denies any new or recent injury or trauma or scabs to the area. MD complaint: abscess/boil Onset (ago): day(s) Tetanus up to date: yes Location: face Severity: moderate Pain Consistency: constant Relieving factors: none Exacerbating factors: none Context: none Associated symptoms: Reports no associated symptoms; Deny chills, fever(s), nausea or vomiting Treatments prior to arrival: none Review of Systems Const: Denies: fever(s), chills, body aches, fatigue or malaise Eyes: Denies: change in vision, blurry vision, photophobia, eye discomfort, floaters or seeing flashes ENMT: Reports: sinus pain; Denies: throat pain, odynophagia, oral sores, dental pain, ear or mastoid pain, nasal discharge or nasal congestion Card: Denies: chest pain Resp: Denies: dyspnea GI: Denies: abdominal pain, nausea or vomiting Musc: Denies: neck pain, back pain, extremity pain or joint pain Skin/Breast: Denies: rash Neuro: Denies: headache(s), numbness in extremities, weakness in extremities, sensory changes, dizziness, confusion or behavioral changes [facility] ED PFSH: Medical History No pertinent family history No pertinent past medical history Social History Smoking and tobacco status: never smoked Alcohol intake: never Substance/Drug Use: never Physical Exam Const: COMMON NORMALS: no acute distress, average body habitus, patient oriented x3, no limitations, healthy appearing, alert and well nourished GENERAL APPEARANCE: cooperative ORIENTATION/CONSCIOUSNESS: Yes awake, Yes oriented to person, Yes oriented to place and Yes oriented to time HENMT: COMMON NORMALS: normocephalic, atraumatic, Normal external nose present, Normal nasal mucous membranes and turbinates present, moist oral mucous membranes, oropharynx normal, dentition normal and gingiva normal HEAD & SCALP: normal to inspection, normocephalic and atraumatic FACE & SINUS: erythema and edema; no fluctuance FACE & SINUS IMAGES: 1. erythema and edema/induration overlying an old scar; no fluctuance/drainage or surrounding cellulitis NOSE: Normal external nose present and Normal nasal mucous membranes and turbinates present MOUTH: Normal oral and palatal mucosa present, lip normal and tongue normal TEETH & GINGIVA: Yes fair dentition and Yes other (no active dental infection identified ) THROAT: posterior oropharynx normal, tonsils normal and uvula midline Eye: COMMON NORMALS: Equal, round and reactive pupils present and EOMs intact bilaterally GENERAL EYE: appearance normal, both eyes and all related structures and normal light reflex PUPIL: Yes Equal, round and reactive pupils present DIRECT OPHTHALMOSCOPY: Yes normal light reflex Neck/C-Spine: COMMON NORMALS: full ROM, no lymphadenopathy and no meningeal signs GENERAL: Yes normal visual inspection, No anterior neck swelling and No submandibular swelling Resp: COMMON NORMALS: normal respiratory effort and clear to auscultation bilaterally AUSCULTATION: clear to auscultation bilaterally Cardio: COMMON NORMALS: regular rate and regular rhythm RATE: regular rate RHYTHM: regular rhythm Neuro: COMMON NORMALS: patient oriented x3, CN's II-XII intact bilaterally, moves all extremities, no focal motor deficits and no sensory deficits noted SENSORIUM/ORIENTATION: Yes alert, Yes oriented to person, Yes oriented to place and Yes oriented to time MENINGEAL SIGNS: Yes no meningeal signs Course Vital Signs: Vital signs: Vital Signs Temperature 97.9 F 05/20/23 14:03 Pulse Rate 75 05/20/23 14:03 Respiratory Rate 16 05/20/23 14:03 Blood Pressure 144/93 05/20/23 14:03 Pulse Oximetry 100 05/20/23 14:03 Oxygen Delivery Me thod Room Air 05/20/23 14:03 MDM - Skin/Abscess/Foreign Bdy Medicial Decision Making I do not appreciate any drainable abscess at this time. We did discuss how in very rare cases, the central triangle of the face infections can subsequently spread to deeper structures and are at risk for development of a dural sinus thrombosis. At this time patient has no signs/symptoms of this. We will give patient IM Rocephin prior to discharge as well as his doses of Bactrim for now and this evening since pharmacies are closed. Strict return to ED precautions given in case this does not begin to respond to antibiotics. Discharge Plan Discharge Patient Disposition: Home Clinical Impression: Facial cellulitis Condition: Stable Prescriptions: New Bactrim DS 800-160 mg tablet 2 tab PO BID 7 Days Qty: 28 0RF No Action Benadryl 50 mg Capsule 50 - 100 mg PO .ONE TIME DOSE Tylenol Ex Str Rapid Release 500 mg Tablet 1,000 mg PO Q6H PRN (Reason: Pain) Pepto-Bismol 262 mg Tablet,Chewable 524 mg PO .ONCE Discharge Orders: Discharge ED (Routine); Ordered 05/20/23 Ordered By: Verónica Strong Activity Restrictions/Additional Instructions: As we discussed you need to begin antibiotics promptly. You need to return to the emergency department in 48 hours if symptoms continue to worsen and you need to return even sooner if redness, swelling, pain significantly worsens over the next day. Coding Level of Care Code ED Orthotic Finish Grinding Technician for [facility] Gr[facility]
[2023-05-20] MEDS: sulfamethoxazole-trimeth DS 160-800 mg Tablet 3 TAB PO (14:48)
[2023-05-20] MEDS: cefTRIAXone 1,000 MG in water for injection-sterile 2.1 ML 1 MG IM (14:49)
--- NOTE | 2023-05-20 15:18 | PC.NURSE ---
PATIENT REFUSED TO SIGN PAPERWORK, ADVISED/REVIEWED ALL DISCHARGE INSTRUCTIONS WITH PATIENT AND FRIEND, BOTH VERBALIZE UNDERSTANDING OF ALL INSTRUCTIONS, MEDICATIONS AND WHEN TO RETURN IF NOT IMPROVING. PATIENT ABLE TO AMBULATE FROM THE [facility] AREA WITHOUT ASSISTANCE.
--- NOTE | 2023-05-23 10:24 | DCPLANNER ---
affiliate manager called patient due to no primary care physician - child welfare caseworker called phone number [phone] - this number has been changed or is no longer in service.
== END 2023-05-20 15:21 | disposition home or self-care (01) ==
PROVIDERS: Emergency Provider Physician Assistant
DX: L03.211 Cellulitis of face (principal)
CPT/HCPCS: 96372; 99284; J0696

== ENCOUNTER 2023-05-20 23:25 | Emergency (ER) | payer OTHER, MEDICAID, SELFPAY ==
[2023-05-20 23:29] VITALS: BP 144/96; PULSE 82; RESP 16; TEMP 36.7; O2SAT 98; BMI 25.0
--- NOTE | 2023-05-20 23:35 | W.ED.DENTAL ---
HPI - Dental/Oral General: Chief complaint: Dental/Oral Stated complaint: swollen lip Time Seen by Provider: 05/20/23 23:27 History of Present Illness: 28-year-old male patient comes in today swelling to the right upper lip. Patient was seen earlier today and was started on antibiotics for cellulitis of the face. Patient does have a noticeable lesion to the right upper lip that has increasing swelling around it and redness this lesion appears to be a carbuncle or furuncle. Patient was started on Bactrim DS and given a dose of ceftriaxone and then discharged home with recommendations for return to the ER for worsening symptoms. Patient came in tonight due to increasing swelling of upper lip. Patient does have a prior history of staph about 10 to 15 years ago. Review of Systems General: Reports: 10 or more systems reviewed and unremarkable except in HPI and below ENMT: Reports: other (Upper lip swelling) Skin/Breast: Reports: erythema and skin tenderness PFSH ED PFSH: Medical History No pertinent family history No pertinent past medical history Social History Smoking and tobacco status: never smoked Alcohol intake: never Substance/Drug Use: never Physical Exam Const: COMMON NORMALS: alert HENMT: FACE & SINUS: erythema and edema (Right upper lip, crusted lesion) FACE & SINUS IMAGES: 1. Swelling and redness centralized crusted lesion Neck/C-Spine: COMMON NORMALS: full ROM Resp: COMMON NORMALS: normal respiratory effort Cardio: COMMON NORMALS: regular rate and regular rhythm RATE: regular rate RHYTHM: regular rhythm Extremity: COMMON NORMALS: normal to inspection Neuro: SENSORIUM/ORIENTATION: Yes alert Skin: LESIONS: lesion noted (Right upper lip surrounding redness and swelling) Procedures Abscess I/D Site: face Side (if applicable): right Sedation/analgesia: none Local Anesthetic: lidocaine 2% Amount of anesthesia used (mL): 2 Technique: incised with #11 blade Amount of fluid expressed (mL): 1 Irrigation: Yes Packing used?: none Complications: bleeding Course Vital Signs: Vital signs: Vital Signs Temperature 98.0 F 05/20/23 23:29 Pulse Rate 82 05/20/23 23:29 Respiratory Rate 16 05/20/23 23:50 Blood Pressure 144/96 05/20/23 23:29 Pulse Oximetry 98 05/20/23 23:29 Oxygen Delivery Me thod Room Air 05/20/23 23:29 MDM - Dental/Oral Medical Decision Making Right upperPatient comes in with crusted lesions surrounding facial redness and swelling lip. Patient reported worsening symptoms since being seen this morning. I do note some increased swelling to the right upper lip. Respirations are even lungs are clear to auscultation. Skin is warm and dry vital signs are normal. Differential diagnosis includes abscess, cellulitis, carbuncle versus furuncle, folliculitis. Under local anesthetic patient lesion was incised and drained with deloculation of the lesion. Patient was given 1 g of vancomycin due to increasing redness and swelling in the face. Patient looked nontoxic. Patient was stable. Patient will continue with Bactrim DS and also Augmentin was added to his regimen. Patient was also given medication for pain. Patient was recommended to drink plenty of fluids and follow-up in 2 to 3 days for recheck return to ER for new concerns or worsening symptoms. Discharge Plan Discharge Patient Disposition: Home Clinical Impression: Carbuncle and furuncle of face, Facial cellulitis Condition: Stable Prescriptions: New amoxicillin-pot clavulanate 875-125 mg tablet 1 tab PO BID Qty: 14 0RF hydrocodone-acetaminophen 5-325 mg tablet 1 tab PO Q8H PRN (Reason: pain (scale score 7-10)) Qty: 6 0RF No Action Bactrim DS 800-160 mg tablet 2 tab PO BID 7 Days Qty: 28 0RF Benadryl 50 mg Capsule 50 - 100 mg PO .ONE TIME DOSE Tylenol Ex Str Rapid Release 500 mg Tablet 1,000 mg PO Q6H PRN (Reason: Pain) Pepto-Bismol 262 mg Tablet,Chewable 524 mg PO .ONCE Discharge Orders: Discharge ED (Routine); Ordered 05/21/23 Ordered By: Adan Quiñones Patient Instructions: Furunculosis and Carbunculosis (ED) Activity Restrictions/Additional Instructions: Drink plenty of water and fluids. Continue Bactrim DS 1 tablet 2 times daily for 7 days, add Augmentin to the treatment regimen 1 tablet twice a day for 7 days. You may need to break up the doses in order to avoid stomach discomfort. Follow-up with primary care as needed. Return to emergency department for worsening symptoms or new concerns. Coding Level of Care Code ED [employer] for [facility]
[2023-05-20] MEDS: dexamethasone 10 mg/mL INJ IVP (23:49)
[2023-05-20 23:50] VITALS: RESP 16
[2023-05-20] MEDS: fentaNYL 50 mcg/mL INJ 2mL 85 MCG IVP (23:50)
[2023-05-20] MEDS: vancomycin 1,000 MG in sodium chloride 0.9% 250 ML 250 MG IV (23:54)
[2023-05-21 01:07] VITALS: PULSE 72; RESP 16; O2SAT 99
--- NOTE | 2023-05-22 15:38 | DCPLANNER ---
digital sales manager called patient due to no primary care physician - case loader operator called phone number [phone] - unable to speak with patient phone number has been changed or disconnected
== END 2023-05-21 01:11 | disposition home or self-care (01) ==
PROVIDERS: Emergency Provider Nurse Practitioner Family
DX: L02.03 Carbuncle of face (principal); K13.0 Diseases of lips; L02.02 Furuncle of face
CPT/HCPCS: 10060; 96365; 96375; 99284; J1100; J3010; J3370; J7050

== ENCOUNTER 2023-06-27 19:02 | Emergency (ER) | payer MEDICAID, SELFPAY ==
[2023-06-27 19:16] VITALS: BP 128/72; PULSE 82; RESP 18; TEMP 36.5; O2SAT 99; BMI 25.7
--- NOTE | 2023-06-27 20:17 | ED_ITS ---
HPI - Wound/Laceration General: Chief Complaint: Wound/Laceration Stated Complaint: Rt Index Finger Cut Time Seen by Provider: 06/27/23 19:24 History of Present Illness: 28-year-old male presents emergency room with right index finger laceration. On further review is that he accidentally cut himself with his knife at home. Patient describes the pain around the laceration is throbbing sensation with severity of 7 out of 10. Patient is able to move his finger and denies any numb ness or tingling to the finger. Patient recently had a tetanus immunization within the past few months. Review of Systems General: Reports: 10 or more systems reviewed and unremarkable except in HPI and below Skin/Breast: Reports: other (Right index finger laceration) [facility], [facility] ED PFSH: Medical History No pertinent family history No pertinent past medical history Social History Smoking and tobacco/nicotine status: never used tobacco/nicotine Alcohol intake: never Substance/Drug Use: never Physical Exam Const: COMMON NORMALS: no acute distress, average body habitus, patient oriented x3, no limitations, healthy appearing, alert and well nourished Resp: COMMON NORMALS: normal respiratory effort, No retractions, No use of accessory muscles, clear to auscultation bilaterally and percussion normal AUSCULTATION: clear to auscultation bilaterally PERCUSSION: percussion normal Neuro: COMMON NORMALS: patient oriented x3 SENSORIUM/ORIENTATION: Yes alert Skin: WOUNDS: Yes wounds noted size (3) NAILS: normal, no clubbing, not discolored, not dystrophic and no pitting Procedures Laceration Laceration 1: Site: upper extremity (Index finger) and hand (Right index finger) Side (If applicable): right Size (cm): 3 Description: linear Depth: simple, single layer Local Anesthetic: lidocaine 2% Amount of anesthesia used (mL): 5 Skin layer closed with: nylon Size (cm): 4-0 Number of sutures: 4 Technique: simple, interrupted Course Vital Signs: Vital signs: Vital Signs Temperature 97.7 F 06/27/23 19:16 Pulse Rate 82 06/27/23 19:16 Respiratory Rate 18 10/12/23 19:16 Blood Pressure 128/72 10/12/23 19:16 Pulse Oximetry 99 06/27/23 19:16 Oxygen Delivery Me thod Room Air 06/27/23 19:16 MDM - Wound/Laceration Medical Decision Making Patient was made comfortable emergency room. The wound was carefully cleaned and irrigated with 500 cc normal saline. Wound was explored for foreign body and tendon damage. No visible foreign body or tendon damage. Sutures applied. Patient tolerated procedure very well. Patient will be discharged home on antibiotics. Again patient is up-to-date with his tetanus immunization. Differential Diagnosis Likely laceration, abscess, abrasion and avulsion of skin No radiology studies performed this visit Discharge Plan Discharge Patient Disposition: Home Clinical Impression: Laceration Condition: Stable Prescriptions: New Bactrim DS 800-160 mg tablet 1 tab PO BID 10 Days Qty: 20 0RF No Action Benadryl 50 mg Capsule 50 - 100 mg PO .ONE TIME DOSE Tylenol Ex Str Rapid Release 500 mg Tablet 1,000 mg PO Q6H PRN (Reason: Pain) Pepto-Bismol 262 mg Tablet,Chewable 524 mg PO .ONCE amoxicillin-pot clavulanate 875-125 mg tablet 1 tab PO BID Qty: 14 0RF hydrocodone-acetaminophen 5-325 mg tablet 1 tab PO Q8H PRN (Reason: pain (scale score 7-10)) Qty: 6 0RF Discharge Orders: Discharge ED (Routine); Ordered 06/27/23 Ordered By: Alex Payan Discharge Diet: Advance as tolerated Discharge Activity: Resume usual activity Patient Instructions: Opioid Safety, Pain Management Coding Level of Care Code ED [place] for [facility]
[2023-06-27 20:47] VITALS: BP 128/72; PULSE 82; RESP 18; O2SAT 99
== END 2023-06-27 20:49 | disposition home or self-care (01) ==
PROVIDERS: Emergency Provider Family Medicine
DX: S61.210A Laceration without foreign body of right index finger without damage to nail, initial encounter (principal); W26.0XXA Contact with knife, initial encounter; Y92.009 Unspecified place in unspecified non-institutional (private) residence as the place of occurrence of the external cause
CPT/HCPCS: 12002; 99283

== ENCOUNTER 2023-07-21 21:23 | Emergency (ER) | payer MEDICAID, SELFPAY ==
[2023-07-21 21:34] VITALS: BP 120/76; PULSE 80; RESP 18; TEMP 36.7; O2SAT 98; BMI 268.5
--- NOTE | 2023-07-21 22:36 | ED_ITS ---
Documented by User: ZORAN Allen 07/22/23 00:11 HPI - General Adult General: Chief complaint: General Medical Stated complaint: Left Shoulder Pain\SOB Time Seen by Provider: 07/21/23 22:07 History of Present Illness: Patient is a 28-year-old male with a past medical history significant for IV drug use who presents to the emergency department for evaluation of chest pain. Patient reports that his symptoms started approximately 2 days ago and has continued to progress since onset. Patient reports that his chest pain is constant and will radiate into his left arm. He currently rates his pain as a 5 out of 10 in severity that he describes as a squeezing-like sensation. Patient admits to associated shortness of breath, lightheadedness, and dizziness. Patient states that he smokes approximately one half a pack of cigarettes a day. Patient states that he last used IV amphetamines approximately 2 weeks ago. Admits to intermittent marijuana use. Patient denies fever, chills, cough, congestion, sore throat, otalgia, otorrhea, abdominal pain, constipation, diarrhea, dysuria, hematuria, nausea, vomiting, or any other associated symptoms . No other complaints at this time. Associated symptoms: Reports chest pain and dyspnea; Deny headache(s), nausea, rash, palpitations or vomiting Review of Systems General: Reports: 10 or more systems reviewed and unremarkable except in HPI and below Const: Denies: fever(s) or chills Eyes: Denies: change in vision or blurry vision ENMT: Denies: throat pain, odynophagia, ear or mastoid pain or ear discharge Card: Reports: chest pain and pre-syncope; Denies: palpitations Resp: Reports: dyspnea; Denies: productive cough, non-productive cough or wheezing GI: Denies: abdominal pain, nausea, vomiting, diarrhea or constipation : Denies: flank pain, difficulty urinating or dysuria Musc: Denies: neck pain or back pain Skin/Breast: Denies: rash Neuro: Denies: headache(s), numbness in extremities or weakness in extremities Psych: Denies: anxiety or depression [facility] ED PFSH: Medical History No pertinent family history No pertinent past medical history Social History Smoking and tobacco/nicotine status: never used tobacco/nicotine Alcohol intake: never Substance/Drug Use: never Physical Exam Const: COMMON NORMALS: no acute distress, average body habitus, patient oriented x3 and alert HENMT: COMMON NORMALS: normocephalic, atraumatic, moist oral mucous membranes and oropharynx normal HEAD & SCALP: normocephalic and atraumatic Eye: COMMON NORMALS: Equal, round and reactive pupils present, EOMs intact bilaterally and conjunctivae normal CONJUNCTIVA: Yes conjunctivae normal PUPIL: Yes Equal, round and reactive pupils present Neck/C-Spine: COMMON NORMALS: full ROM and no lymphadenopathy Chest: COMMONS NORMALS: normal inspection of the chest Resp: COMMON NORMALS: normal respiratory effort, No retractions, No use of accessory muscles and clear to auscultation bilaterally AUSCULTATION: clear to auscultation bilaterally Cardio: COMMON NORMALS: regular rate, regular rhythm, S1 normal heart sound present, S2 normal heart sound present, No gallops present (Cardio), No clicks present (Cardio), No murmurs present (Cardio), No rub (Cardio) and Peripheral pulses 2+ throughout RATE: regular rate RHYTHM: regular rhythm HEART SOUNDS: S1 normal heart sound present and S2 normal heart sound present PERIPHERAL PULSES: Peripheral pulses 2+ throughout GI: COMMON NORMALS: Normal to inspection, nondistended, normoactive bowel sounds present Extremity: OTHER: Needle small appreciated in the bilateral antecubital fossa. Patient does admit to IV drug use. Neuro: COMMON NORMALS: patient oriented x3 SENSORIUM/ORIENTATION: Yes alert OTHER: Sensation intact to the bilateral upper and lower extremities. Course Vital Signs: Vital signs: Vital Signs Temperature 98.0 F 07/21/23 21:34 Pulse Rate 80 07/21/23 21:34 Respiratory Rate 18 07/21/23 21:34 Blood Pressure 120/76 07/21/23 21:34 Pulse Oximetry 98 07/21/23 21:34 Oxygen Delivery Me thod Room Air 07/21/23 21:34 MDM - General Adult Medical Decision Making Patient is a 28-year-old male with a past medical history significant for IV drug use who presents to the emergency department for evaluation of chest pain. On physical examination patient is nontoxic and in no acute distress. Vital signs remained stable throughout the ED course. Patient is afebrile. Chest x- ray showed no acute cardiopulmonary pathology. CBC showed no evidence of leukocytosis. CMP and initial troponin unremarkable. Urinalysis showed no evidence of urinary tract infection. Urine drug screen positive for amphetamines and marijuana. EKG normal sinus rhythm. Patient PERC out for pulmonary embolism. Patient is afebrile and no murmur was heard to auscultation. I do not think endocarditis or myocarditis is likely at this time. I do not think acute coronary syndrome or pulmonary embolism is likely at this time. Based off history and physical examination I do not believe the patient symptoms are emergent and require further emergent evaluation at this time. Increase oral hydration. See handout over generalized instructions. Tylenol and Motrin as needed for pain. Stop your amphetamine use as this is likely exacerbating your symptoms. Call your primary care provider tomorrow with an update of your symptoms and to schedule appointment for further management/evaluation. Return to the emergency department for any rapid or worsening symptoms to include but not limited to worsening chest pain, shortness of breath, palpitations, lightheadedness, dizziness, nausea, vomiting, or as needed. Patient stated understanding of all discharge instructions and was agreeable to plan of care. I discussed patient's history, exam, and all findings with Dr. Gore in the emergency department who agreed with assessment and plan. He did not feel patient required admission or further evaluation at this time. Differential diagnosis includes but is not limited to costochondritis, anxiety, drug abuse, acute coronary syndrome, pulmonary embolism, endocarditis, myocarditis, pneumonia Lab Data 07/21/23 22:56 07/21/23 22:56 Radiology Impressions Chest X-Ray 07/21/23 22:37 IMPRESSION: 1. Negative for infiltrate 2. 5.6 mm punctate radiodensity in the left supraclavicular region on PA view not seen on the lateral view, potentially external to the patient. Laboratory Results WBC 6.58 10^3/uL (3.29-11.43) 07/21/23 22:56 RBC 5.01 10^6/uL (3.85-5.65) 07/21/23 22:56 Hgb 14.30 g/dL (11.27-16.99) 07/21/23 22:56 Hct 43.7 % (37-53) 07/21/23 22:56 MCV 87.2 fl (82-101) 07/21/23 22:56 MCH 28.5 pg (27-33) 07/21/23 22:56 MCHC 32.7 g/dL (30-55) 07/21/23 22:56 RDW 12.6 % (12.1-15.1) 07/21/23 22:56 Plt Count 266 10^3/cmm (157-399) 07/21/23 22:56 MPV 9.9 fL (7.4-10.4) 07/21/23 22:56 Neut % (Auto) 39.6 % 07/21/23 22:56 Lymph % (Auto) 47.3 % 07/21/23 22:56 [place] % (Auto) 8.8 % 07/21/23 22:56 Eos % (Auto) 3.8 % 07/21/23 22:56 Baso % (Auto) 0.3 % 07/21/23 22:56 Neut # (Auto) 2.61 10^3/uL (1.8-7.7) 07/21/23 22:56 Lymph # (Auto) 3.1 10^3/uL (0.8-4.8) 07/21/23 22:56 [place] # (Auto) 0.6 10^3/uL (0.2-0.9) 07/21/23 22:56 Eos # (Auto) 0.3 10^3/uL (0.0-0.8) 07/21/23 22:56 Baso # (Auto) 0.0 10^3/uL (0.0-0.1) 07/21/23 22:56 Nucleated RBC % (auto) 0 % 07/21/23 22:56 Nucleated RBCs # 0.0 /100WBC 07/21/23 22:56 Sodium 142 mmol/L (136-145) 07/21/23 22:56 Potassium 4.2 mmol/L (3.5-5.1) 07/21/23 22:56 Chloride 105 mmol/L (98-107) 07/21/23 22:56 Carbon Dioxide 27 mmol/L (22-29) 07/21/23 22:56 Anion Gap 14.2 (5-19) 07/21/23 22:56 BUN 19 mg/dL (6-20) 07/21/23 22:56 Creatinine 1.1 mg/dL (0.7-1.2) 07/21/23 22:56 GFR Calculation 78.6 mL/min (90-130) L 07/21/23 22:56 Glucose 109 mg/dL (65-115) 07/21/23 22:56 Calculated Osmolality 297 mOsm/kg (285-295) H 07/21/23 22:56 Calcium 9.5 mg/dL (8.5-10.5) 07/21/23 22:56 Total Bilirubin 0.2 mg/dL (0.15-1.2) 07/21/23 22:56 AST 18 U/L (0-40) 07/21/23 22:56 ALT 39 U/L (0-41) 07/21/23 22:56 Alkaline Phosphatase 98 U/L (40-130) 07/21/23 22:56 Troponin T Baseline < 6 ng/L (0-15) 07/21/23 22:56 Total Protein 6.6 g/dL (6.6-8.7) 07/21/23 22:56 Albumin 4.5 g/dL (3.5-5.2) 07/21/23 22:56 Globulin 2.1 g/dL (1.3-4.6) 07/21/23 22:56 Urine Color Yellow (Yellow) 07/21/23 23:26 Urine Appearance Clear (CLEAR) 07/21/23 23:26 Urine pH 5 (5-7) 07/21/23 23:26 Ur Specific [place] 1.025 (1.005-1.030) 07/21/23 23:26 Urine Protein Trace (Negative) 07/21/23 23:26 Urine Glucose (UA) Norm (Normal) 07/21/23 23:26 Urine Ketones 1+ (Negative) H 07/21/23 23:26 Urine Blood Neg (Negative) 07/21/23 23:26 Urine Nitrate Negative (Negative) 07/21/23 23: Urine Bilirubin Neg (Negative) 07/21/23 23:26 Urine Urobilinogen 1 mg/dL (Negative) H 07/21/23 23:26 Ur Leukocyte Esterase Negative (Negative) 07/21/23 23:26 Urine RBC Rare /hpf (0-2) 07/21/23 23:26 Urine WBC Rare /hpf (0-5) 07/21/23 23:26 Ur Squamous Epith Cells Rare /hpf (0-5) 07/21/23 23:26 Amorphous Sediment 2+ /hpf 07/21/23 23:26 Urine Bacteria Trace /hpf (NONE) 07/21/23 23:26 Urine Mucus 3+ /hpf 07/21/23 23:26 Urine Opiates Screen Negative ng/mL (Negative) 07/21/23 23:26 Ur Barbiturates Screen Negative ng/mL (Negative) 07/21/23 23:26 Ur Phencyclidine Scrn Negative ng/mL (Negative) 07/21/23 23:26 Ur Amphetamines Screen Positive ng/mL (Negative) H 07/21/23 23:26 U Benzodiazepines Scrn Negative ng/mL (Negative) 07/21/23 23:26 Urine Cocaine Screen Negative ng/mL (Negative) 07/21/23 23:26 U Marijuana (THC) Screen Positive ng/mL (Negative) H 07/21/23 23:26 All radiology interpretation(s) finalized by discharge Discharge Plan Discharge Patient Disposition: Home Clinical Impression: Chest pain Condition: Stable Prescriptions: No Action Benadryl 50 mg Capsule 50 - 100 mg PO .ONE TIME DOSE Tylenol Ex Str Rapid Release 500 mg Tablet 1,000 mg PO Q6H PRN (Reason: Pain) Pepto-Bismol 262 mg Tablet,Chewable 524 mg PO .ONCE amoxicillin-pot clavulanate 875-125 mg tablet 1 tab PO BID Qty: 14 0RF hydrocodone-acetaminophen 5-325 mg tablet 1 tab PO Q8H PRN (Reason: pain (scale score 7-10)) Qty: 6 0RF Discharge Orders: Discharge ED (Routine); Ordered 07/22/23 Ordered By: Yunier King Patient Instructions: Chest Pain (ED) Activity Restrictions/Additional Instructions: As discussed in room no acute or concerning pathology was noted on your imaging or laboratory work. Increase oral hydration. See handout over generalized instructions. Tylenol and Motrin as needed for pain. Stop your amphetamine use as this is likely exacerbating your symptoms. Call your primary care provider tomorrow with an update of your symptoms and to schedule appointment for further management/evaluation. Return to the emergency department for any rapid or worsening symptoms to include but not limited to worsening chest pain, shortness of breath, palpitations, lightheadedness, dizziness, nausea, vomiting, or as needed. Coding Level of Care Code ED [facility] for [employer] Documented by User: Chencho Gore DO 07/22/23 03:07 HPI - General Adult General: Chief complaint: General Medical Stated complaint: Left Shoulder Pain\SOB Time Seen by Provider: 07/21/23 22:07 [facility] ED PFSH: Medical History No pertinent family history No pertinent past medical history Social History Smoking and tobacco/nicotine status: never used tobacco/nicotine Alcohol intake: never Substance/Drug Use: never Course Vital Signs: Vital signs: Vital Signs Temperature 98.0 F 07/21/23 21:34 Pulse Rate 80 07/21/23 21:34 Respiratory Rate 18 07/21/23 21:34 Blood Pressure 120/76 07/21/23 21:34 Pulse Oximetry 98 07/21/23 21:34 Oxygen Delivery Me thod Room Air 07/21/23 21:34 [facility] - General Adult Medical Decision Making Patient is a 28-year-old male with a past medical history significant for IV drug use who presents to the emergency department for evaluation of chest pain. On physical examination patient is nontoxic and in no acute distress. Vital signs remained stable throughout the ED course. Patient is afebrile. Chest x- ray showed no acute cardiopulmonary pathology. CBC showed no evidence of leukocytosis. CMP and initial troponin unremarkable. Urinalysis showed no evidence of urinary tract infection. Urine drug screen positive for amphetamines and marijuana. EKG normal sinus rhythm. Patient PERC out for pu lmonary embolism. Patient is afebrile and no murmur was heard to auscultation. I do not think endocarditis or myocarditis is likely at this time. I do not think acute coronary syndrome or pulmonary embolism is likely at this time. Based off history and physical examination I do not believe the patient symptoms are emergent and require further emergent evaluation at this time. Increase oral hydration. See handout over generalized instructions. Tylenol and Motrin as needed for pain. Stop your amphetamine use as this is likely exacerbating your symptoms. Call your primary care provider tomorrow with an update of your symptoms and to schedule appointment for further management/evaluation. Return to the emergency department for any rapid or worsening symptoms to include but not limited to worsening chest pain, shortness of breath, palpitations, lightheadedness, dizziness, nausea, vomiting, or as needed. Patient stated understanding of all discharge instructions and was agreeable to plan of care. I discussed patient's history, exam, and all findings with Dr. Gore in the emergency department who agreed with assessment and plan. He did not feel patient required admission or further evaluation at this time. Differential diagnosis includes but is not limited to costochondritis, anxiety, drug abuse, acute coronary syndrome, pulmonary embolism, endocarditis, myocarditis, pneumonia This patient was originally seen by Mr. Christine PA-C. I agree with his history, evaluation, and treatment. Lab Data 07/21/23 22:56 07/21/23 22:56 Radiology Impressions Chest X-Ray 07/21/23 22:37 IMPRESSION: 1. Negative for infiltrate 2. 5.6 mm punctate radiodensity in the left supraclavicular region on PA view not seen on the lateral view, potentially external to the patient. Laboratory Results WBC 6.58 10^3/uL (3.29-11.43) 07/21/23 22:56 RBC 5.01 10^6/uL (3.85-5.65) 07/21/23 22:56 Hgb 14.30 g/dL (11.27-16.99) 07/21/23 22:56 Hct 43.7 % (37-53) 07/21/23 22:56 MCV 87.2 fl (82-101) 07/21/23 22:56 MCH 28.5 pg (27-33) 07/21/23 22:56 MCHC 32.7 g/dL (30-55) 07/21/23 22:56 RDW 12.6 % (12.1-15.1) 07/21/23 22:56 Plt Count 266 10^3/cmm (157-399) 07/21/23 22:56 MPV 9.9 fL (7.4-10.4) 07/21/23 22:56 Neut % (Auto) 39.6 % 07/21/23 22:56 Lymph % (Auto) 47.3 % 07/21/23 22:56 [place] % (Auto) 8.8 % 07/21/23 22:56 Eos % (Auto) 3.8 % 07/21/23 22:56 Baso % (Auto) 0.3 % 07/21/23 22:56 Neut # (Auto) 2.61 10^3/uL (1.8-7.7) 07/21/23 22:56 Lymph # (Auto) 3.1 10^3/uL (0.8-4.8) 07/21/23 22:56 [place] # (Auto) 0.6 10^3/uL (0.2-0.9) 07/21/23 22:56 Eos # (Auto) 0.3 10^3/uL (0.0-0.8) 07/21/23 22:56 Baso # (Auto) 0.0 10^3/uL (0.0-0.1) 07/21/23 22:56 Nucleated RBC % (auto) 0 % 07/21/23 22:56 Nucleated RBCs # 0.0 /100WBC 07/21/23 22:56 Sodium 142 mmol/L (136-145) 07/21/23 22:56 Potassium 4.2 mmol/L (3.5-5.1) 07/21/23 22:56 Chloride 105 mmol/L (98-107) 07/21/23 22:56 Carbon Dioxide 27 mmol/L (22-29) 07/21/23 22:56 Anion Gap 14.2 (5-19) 07/21/23 22:56 BUN 19 mg/dL (6-20) 07/21/23 22:56 Creatinine 1.1 mg/dL (0.7-1.2) 07/21/23 22:56 GFR Calculation 78.6 mL/min (90-130) L 07/21/23 22:56 Glucose 109 mg/dL (65-115) 07/21/23 22:56 Calculated Osmolality 297 mOsm/kg (285-295) H 07/21/23 22:56 Calcium 9.5 mg/dL (8.5-10.5) 07/21/23 22:56 Total Bilirubin 0.2 mg/dL (0.15-1.2) 07/21/23 22:56 AST 18 U/L (0-40) 07/21/23 22:56 ALT 39 U/L (0-41) 07/21/23 22:56 Alkaline Phosphatase 98 U/L (40-130) 07/21/23 22:56 Troponin T Baseline < 6 ng/L (0-15) 07/21/23 22:56 Total Protein 6.6 g/dL (6.6-8.7) 07/21/23 22:56 Albumin 4.5 g/dL (3.5-5.2) 07/21/23 22:56 Globulin 2.1 g/dL (1.3-4.6) 07/21/23 22:56 Urine Color Yellow (Yellow) 07/21/23 23:26 Urine Appearance Clear (CLEAR) 07/21/23 23:26 Urine pH 5 (5-7) 07/21/23 23:26 Ur Specific [place] 1.025 (1.005-1.030) 07/21/23 23:26 Urine Protein Trace (Negative) 07/21/23 23:26 Urine Glucose (UA) Norm (Normal) 07/21/23 23:26 Urine Ketones 1+ (Negative) H 07/21/23 23:26 Urine Blood Neg (Negative) 07/21/23 23:26 Urine Nitrate Negative (Negative) 07/21/23 23:26 Urine Bilirubin Neg (Negative) 07/21/23 23:26 Urine Urobilinogen 1 mg/dL (Negative) H 07/21/23 23:26 Ur Leukocyte Esterase Negative (Negative) 07/21/23 23:26 Urine RBC Rare /hpf (0-2) 07/21/23 23:26 Urine WBC Rare /hpf (0-5) 07/21/23 23:26 Ur Squamous Epith Cells Rare /hpf (0-5) 07/21/23 23:26 Amorphous Sediment 2+ /hpf 07/21/23 23:26 Urine Bacteria Trace /hpf (NONE) 07/21/23 23:26 Urine Mucus 3+ /hpf 07/21/23 23:26 Urine Opiates Screen Negative ng/mL (Negative) 07/21/23 23:26 Ur Barbiturates Screen Negative ng/mL (Negative) 07/21/23 23:26 Ur Phencyclidine Scrn Negative ng/mL (Negative) 07/21/23 23:26 Ur Amphetamines Screen Positive ng/mL (Negative) H 07/21/23 23:26 U Benzodiazepines Scrn Negative ng/mL (Negative) 07/21/23 23:26 Urine Cocaine Screen Negative ng/mL (Negative) 07/21/23 23:26 U Marijuana (THC) Screen Positive ng/mL (Negative) H 07/21/23 23:26 Discharge Plan Discharge Patient Disposition: Home Clinical Impression: Chest pain Condition: Stable Prescriptions: No Action Benadryl 50 mg Capsule 50 - 100 mg PO .ONE TIME DOSE Tylenol Ex Str Rapid Release 500 mg Tablet 1,000 mg PO Q6H PRN (Reason: Pain) Pepto-Bismol 262 mg Tablet,Chewable 524 mg PO .ONCE amoxicillin-pot clavulanate 875-125 mg tablet 1 tab PO BID Qty: 14 0RF hydrocodone-acetaminophen 5-325 mg tablet 1 tab PO Q8H PRN (Reason: pain (scale score 7-10)) Qty: 6 0RF Discharge Orders: Discharge ED (Routine); Ordered 07/22/23 Ordered By: Yunier King Patient Instructions: Chest Pain (ED) Activity Restrictions/Additional Instructions: As discussed in room no acute or concerning pathology was noted on your imaging or laboratory work. Increase oral hydration. See handout over generalized instructions. Tylenol and Motrin as needed for pain. Stop your amphetamine use as this is likely exacerbating your symptoms. Call your primary care provider tomorrow with an update of your symptoms and to schedule appointment for further management/evaluation. Return to the emergency department for any rapid or worsening symptoms to include but not limited to worsening chest pain, shortness of breath, palpitations, lightheadedness, dizziness, nausea, vomiting, or as needed. Coding Level of Care Code ED [facility]
--- NOTE | 2023-07-21 22:37 | XRR_ITS ---
PROCEDURE INFORMATION: Exam: XR Chest Exam date and time: 07/21/2023 10:44 PM Age: 28 years old Clinical indication: Left-sided; Patient HX: C/O left sided chest pain TECHNIQUE: Imaging protocol: Radiologic exam of the chest. Views: 2 views. COMPARISON: [place] [id number] 07/09/2018 9:26 PM FINDINGS: Lungs: Unremarkable. No consolidation. Pleural spaces: Unremarkable. No pleural effusion. No pneumothorax. Heart/Mediastinum: Unremarkable. No cardiomegaly. Bones/joints: Unremarkable. Soft tissues: 5.6 mm punctate radiodensity in the left supraclavicular region on PA view not seen on the lateral view, potentially external to the patient. XR/XR chest 2V* [id number] IMPRESSION: 1. Negative for infiltrate 2. 5.6 mm punctate radiodensity in the left supraclavicular region on PA view not seen on the lateral view, potentially external to the patient.
[2023-07-21 23:00] LABS: Basophils % 0.3 %; Eosinophils # 0.3 10^3/uL (0.0-0.8); Eosinophils % 3.8 %; Hematocrit 43.7 % (37-53); Lymphocytes # 3.1 10^3/uL (0.8-4.8); Lymphocytes % 47.3 %; Mean Corpuscular HGB Conc 32.7 g/dL (30-55); Mean Corpuscular Hemoglobin 28.5 pg (27-33); Mean Corpuscular Volume 87.2 fl (82-101); Mean Platelet Volume 9.9 fL (7.4-10.4); Monocytes # 0.6 10^3/uL (0.2-0.9); Monocytes % 8.8 %; Neutrophils # 2.61 10^3/uL (1.8-7.7); Neutrophils % 39.6 %; Nucleated Red Blood Cells % 0 %; Platelet Count 266 10^3/cmm (157-399); Red Blood Count 5.01 10^6/uL (3.85-5.65); Red Cell Distribution Width 12.6 % (12.1-15.1); White Blood Count 6.58 10^3/uL (3.29-11.43)
[2023-07-21 23:17] LABS: Troponin(5th) Baseline < 6 ng/L (0-15)
[2023-07-21 23:23] LABS: Alanine Aminotransferase 39 U/L (0-41); Albumin Level 4.5 g/dL (3.5-5.2); Alkaline Phosphatase 98 U/L (40-130); Anion Gap 14.2 (5-19); Aspartate Amino Transferase 18 U/L (0-40); Blood Urea Nitrogen 19 mg/dL (6-20); Calcium 9.5 mg/dL (8.5-10.5); Carbon Dioxide 27 mmol/L (22-29); Chloride 105 mmol/L (98-107); Globulin 2.1 g/dL (1.3-4.6); Glomerular Filtration Rate 78.6 mL/min (90-130); Glucose 109 mg/dL (65-115); Osmolality Calculated 297 mOsm/kg (285-295); Potassium 4.2 mmol/L (3.5-5.1); Sodium 142 mmol/L (136-145); Total Bilirubin 0.2 mg/dL (0.15-1.2); Total Protein 6.6 g/dL (6.6-8.7)
[2023-07-21 23:44] LABS: Amphetamines Screen Urine Positive (Negative); Barbiturates Screen Urine Negative (Negative); Benzodiazepines Screen Urine Negative (Negative); Cocaine Screen Urine Negative (Negative); Opiate Screen Urine Negative (Negative); PCP Screen Urine Negative (Negative); THC Screen Urine Positive (Negative)
[2023-07-21 23:46] LABS: Glucose Urine UA Norm (Normal); Ketones Urine 1+ (Negative); Protein Urine Trace (Negative); Specific Gravity, Urine 1.025 (1.005-1.030); Urine Appearance Clear (CLEAR); Urine Color Yellow (Yellow); pH Urine 5 (5-7)
[2023-07-21 23:47] LABS: Add Urine Culture? No; Add Urine Microscopic? YES; Amorphous Sediment Urine 2+ /hpf; Bacteria Urine TRACE /hpf; Bilirubin Urine Neg (Negative); Blood Urine Neg (Negative); Leukocyte Esterase Urine Negative (Negative); Mucus Urine 3+ /hpf; Nitrate Urine Negative (Negative); RBC Urine RARE /hpf (0-2); Squamous Epithelial Cell Urine RARE /hpf (0-5); Urobilinogen Urine 1 mg/dL (Negative); WBC Urine RARE /hpf (0-5)
== END 2023-07-22 00:12 | disposition home or self-care (01) ==
PROVIDERS: Emergency Provider Physician Assistant
DX: R07.9 Chest pain, unspecified (principal)
CPT/HCPCS: 36415; 71046; 80053; 80306; 81001; 84484; 85025; 99284

== ENCOUNTER 2023-09-05 11:18 | Emergency (ER) | payer MEDICAID, SELFPAY ==
[2023-09-05 11:23] VITALS: BP 110/81; PULSE 70; RESP 16; TEMP 36.3; O2SAT 99; BMI 24.4
--- NOTE | 2023-09-05 11:45 | ED_ITS ---
HPI - Nausea/Vomiting/Diarrhea 2 General: Chief complaint: Nausea/Vomiting/Diarrhea Stated complaint: Nausea, diarrhea, abd pain Time Seen by Provider: 09/05/23 11:44 Source: patient Mode of arrival: ambulatory History of Present Illness: 28-year-old male presents to the emergen cy room complaining nausea vomiting for the last 2 days. Denies hematochezia melena hematemesis coffee-ground emesis. No dysuria urgency or frequency. He states this began after he had eaten at a local restaurant. No fever sweats or chills. MD elicited complaint: nausea and vomiting Onset (ago): day(s) (2) Description of vomiting: watery and bilious Associated nausea: Yes Location of pain: Epigastric Quality: cramping Exacerbating factors: eating Relieving factors: none Associated symtoms: Reports anorexia and nausea; Denies altered mental status, anxiety, bloating, change in vision, chest pain, cough, diaphoresis, decreased urine output, dizziness, dysuria, epistaxis, fatigue, fecal incontinence, fevers/chills, headache(s), malaise, myalgias, numbness, palpitations, rash, short of breath, syncope, tenesmus, tinnitus, weakness or other Review of Systems 2 Const: Denies: fever(s), chills, fatigue, malaise or diaphoresis Eyes: Denies: change in vision ENMT: Denies: tinnitus or epistaxis Card: Denies: chest pain, palpitations or syncope Resp: Denies: dyspnea GI: Reports: nausea; Denies: abdominal pain, bloating or fecal incontinence : Denies: dysuria, urinary frequency or urinary urgency Musc: Denies: neck pain or back pain Skin/Breast: Denies: rash Neuro: Denies: headache(s) or dizziness Psych: Denies: anxiety PFSH ED 2 PFSH: Medical History No pertinent past medical history No pertinent family history Social History Smoking and tobacco/nicotine status: never used tobacco/nicotine Alcohol intake: never Substance/Drug Use: never Physical Exam 2 Const: COMMON NORMALS: no acute distress EXAM LIMITATIONS: no altered mental status GENERAL APPEARANCE: cooperative and comfortable O RIENTATION/CONSCIOUSNESS: Yes awake, Yes oriented to person, Yes oriented to place and Yes oriented to time HENMT: COMMON NORMALS: normocephalic, atraumatic and hearing grossly normal bilaterally HEAD & SCALP: normocephalic and atraumatic Resp: COMMON NORMALS: normal respiratory effort, No retractions, No use of accessory muscles and clear to auscultation bilaterally AUSCULTATION: clear to auscultation bilaterally Cardio: COMMON NORMALS: regular rate, regular rhythm and No murmurs present (Cardio) RATE: regular rate RHYTHM: regular rhythm GI: COMMON NORMALS: Soft to palpation and No hepatosplenomegaly present A USCULTATION: Yes normoactive bowel sounds PALPATION: Yes Soft to palpation, No Tenderness to palpation present (GI), No Guarding due to palpation present (GI) and Yes No hepatosplenomegaly present Extremity: COMMON NORMALS: normal to inspection, capillary refill normal, no clubbing, cyanosis or edema, no calf tenderness and no pedal edema Neuro: SENSORIUM/ORIENTATION: Yes oriented to person, Yes oriented to place and Yes oriented to time Skin: COMMON NORMALS: no rashes or lesions noted GENERAL SKIN EXAM: no rashes or lesions noted Course 2 Vital Signs: Vital signs: Vital Signs Temperature 97.3 F L 09/05/23 11:23 Pulse Rate 68 09/05/23 12:30 Respiratory Rate 16 09/05/23 11:23 Blood Pressure 111/75 09/05/23 12:30 Pulse Oximetry 99 09/05/23 12:30 Oxygen Delivery Me thod Room Air 09/05/23 11:56 MDM - Nausea/Vomiting/Diarrhea Medical Decision Making Patient requested to leave prior to completion of the urine we are making ready his discharge instructions and patient left the department with his IV in place we contacted EMS lawn for cement to find the patient I removed the IV can return at any time. Lab Data 09/05/23 11:54 09/05/23 11:54 Laboratory Results WBC 7.94 10^3/uL (3.29-11.43) 09/05/23 11:54 RBC 6.08 10^6/uL (3.85-5.65) H 09/05/23 11:54 Hgb 17.40 g/dL (11.27-16.99) H 09/05/23 11:54 Hct 52.2 % (37-53) 09/05/23 11:54 MCV 85.9 fl (82-101) 09/05/23 11:54 MCH 28.6 pg (27-33) 09/05/23 11:54 MCHC 33.3 g/dL (30-55) 09/05/23 11:54 RDW 12.5 % (12.1-15.1) 09/05/23 11:54 Plt Count 362 10^3/cmm (157-399) 09/05/23 11:54 MPV 9.6 fL (7.4-10.4) 09/05/23 11:54 Neut % (Auto) 59.9 % 09/05/23 11:54 Lymph % (Auto) 31.9 % 09/05/23 11:54 Power % (Auto) 5.8 % 09/05/23 11:54 Eos % (Auto) 2.0 % 09/05/23 11:54 Baso % (Auto) 0.1 % 09/05/23 11:54 Neut # (Auto) 4.76 10^3/uL (1.8-7.7) 09/05/23 11:54 Lymph # (Auto) 2.5 10^3/uL (0.8-4.8) 09/05/23 11:54 Power # (Auto) 0.5 10^3/uL (0.2-0.9) 09/05/23 11:54 Eos # (Auto) 0.2 10^3/uL (0.0-0.8) 09/05/23 11:54 Baso # (Auto) 0.0 10^3/uL (0.0-0.1) 09/05/23 11:54 Nucleated RBC % (auto) 0 % 09/05/23 11:54 Nucleated RBCs # 0.0 /100WBC 09/05/23 11:54 Sodium 136 mmol/L (136-145) 09/05/23 11:54 Potassium 5.1 mmol/L (3.5-5.1) 09/05/23 11:54 Chloride 102 mmol/L (98-107) 09/05/23 11:54 Carbon Dioxide 26 mmol/L (22-29) 09/05/23 11:54 Anion Gap 13.1 (5-19) 09/05/23 11:54 BUN 14 mg/dL (6-20) 09/05/23 11:54 Creatinine 1.1 mg/dL (0.7-1.2) 09/05/23 11:54 GFR Calculation 78.6 mL/min (90-130) L 09/05/23 11:54 Glucose 92 mg/dL (65-115) 09/05/23 11:54 Calculated Osmolality 282 mOsm/kg (285-295) L 09/05/23 11:54 Calcium 9.7 mg/dL (8.5-10.5) 09/05/23 11:54 Total Bilirubin 0.6 mg/dL (0.15-1.2) 09/05/23 11:54 AST 14 U/L (0-40) 09/05/23 11:54 ALT 17 U/L (0-41) 09/05/23 11:54 Alkaline Phosphatase 109 U/L (40-130) 09/05/23 11:54 Total Protein 8.2 g/dL (6.6-8.7) 09/05/23 11:54 Albumin 4.9 g/dL (3.5-5.2) 09/05/23 11:54 Globulin 3.3 g/dL (1.3-4.6) 09/05/23 11:54 Lipase 46 U/L (13-60) 09/05/23 11:54 No radiology studies performed this visit Discharge Plan Discharge Patient Disposition: Home Clinical Impression: Gastroenteritis Condition: Stable Prescriptions: New ondansetron HCl 4 mg tablet 4 mg PO Q6H PRN (Reason: nausea and vomiting) Qty: 20 0RF Discharge Orders: Discharge ED (Routine); Ordered 09/05/23 Ordered By: Jono Clarke Discharge Diet: Clear Liquid Discharge Activity: Increase activity as tolerated Patient Instructions: Clear Liquid Diet (ED), Gastroenteritis (ED), Opioid Safety, Pain Management Activity Restrictions/Additional Instructions: Thank you for choosing [facility] for your healthcare needs today. Please realize this is an emergency room and that we are providing you with a medical screening exam and this may not be complete and all inclusive of all the testing and or work up that you may need to determine your ailment or severity of your illness. It is very important that you follow up as instructed or that you return to the Emergency Department should you have concerns or if your condition changes or worsens in any way. You are seen in the emergency room for complaint of nausea and vomiting laboratory test that were completed did not show significant abnormalities. You elected to leave before all the labs were completed we had wanted to check a urine specimen on you as well. Based on the history and the evaluation that was completed suspect you have a mild gastroenteritis that could be due to a viral source or could be due to food you may have ingested. These things are usually self-limited recommend a clinical diet for 24 to 48 hours and use the ondansetron for nausea and vomiting as needed. 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
[2023-09-05 11:56] VITALS: BP 120/70; PULSE 78; O2SAT 100
[2023-09-05] MEDS: sodium chloride 0.9% 1,000 ML 999 ML IV (11:58)
[2023-09-05] MEDS: ondansetron 2 mg/ML SDV 2 mL 4 MG IVP (11:59)
[2023-09-05 12:00] LABS: Basophils % 0.1 %; Eosinophils # 0.2 10^3/uL (0.0-0.8); Hematocrit 52.2 % (37-53); Lymphocytes # 2.5 10^3/uL (0.8-4.8); Lymphocytes % 31.9 %; Mean Corpuscular HGB Conc 33.3 g/dL (30-55); Mean Corpuscular Hemoglobin 28.6 pg (27-33); Mean Corpuscular Volume 85.9 fl (82-101); Mean Platelet Volume 9.6 fL (7.4-10.4); Monocytes # 0.5 10^3/uL (0.2-0.9); Monocytes % 5.8 %; Neutrophils # 4.76 10^3/uL (1.8-7.7); Neutrophils % 59.9 %; Nucleated Red Blood Cells % 0 %; Platelet Count 362 10^3/cmm (157-399); Red Blood Count 6.08 10^6/uL (3.85-5.65); Red Cell Distribution Width 12.5 % (12.1-15.1); White Blood Count 7.94 10^3/uL (3.29-11.43)
[2023-09-05 12:14] LABS: Alanine Aminotransferase 17 U/L (0-41); Albumin Level 4.9 g/dL (3.5-5.2); Alkaline Phosphatase 109 U/L (40-130); Anion Gap 13.1 (5-19); Aspartate Amino Transferase 14 U/L (0-40); Blood Urea Nitrogen 14 mg/dL (6-20); Calcium 9.7 mg/dL (8.5-10.5); Carbon Dioxide 26 mmol/L (22-29); Chloride 102 mmol/L (98-107); Creatinine Clr Calc Pharmacy 110.0261; Globulin 3.3 g/dL (1.3-4.6); Glomerular Filtration Rate 78.6 mL/min (90-130); Glucose 92 mg/dL (65-115); Osmolality Calculated 282 mOsm/kg (285-295); Potassium 5.1 mmol/L (3.5-5.1); Sodium 136 mmol/L (136-145); Total Bilirubin 0.6 mg/dL (0.15-1.2); Total Protein 8.2 g/dL (6.6-8.7)
[2023-09-05 12:22] LABS: Lipase 46 U/L (13-60)
[2023-09-05 12:26] VITALS: BP 120/70; PULSE 75; O2SAT 99
[2023-09-05 12:30] VITALS: BP 111/75; PULSE 68; O2SAT 99
== END 2023-09-05 13:10 | disposition home or self-care (01) ==
PROVIDERS: Emergency Provider Family Medicine
DX: K52.9 Noninfective gastroenteritis and colitis, unspecified (principal)
CPT/HCPCS: 80053; 83690; 85025; 96374; 99284; J2405; J7030

== ENCOUNTER 2023-09-05 23:35 | Emergency (ER) | payer MEDICAID, SELFPAY ==
[2023-09-05 23:43] VITALS: BP 135/83; PULSE 93; RESP 16; TEMP 36.5; O2SAT 99
--- NOTE | 2023-09-06 00:35 | W.ED.ABDPA2 ---
HPI - Abdominal Pain General: Chief Complaint: Abdominal Pain Stated Complaint: diarrhea, stomach cramps Time Seen by Provider: 09/06/23 00:09 History of Present Illness: 28-year-old male reports that 3 days ago he ate a chicken sandwich that he could barely finish because it tasted weird. Patient reports 2 episodes of emesis and then since then has had persistent diarrhea. Patient reports that most of the time he defecates shortly after eating. Patient denies any surgeries. Patient denies any chronic medical problems. Patient appears nontoxic. Associated Symptoms: Reports diarrhea; Denies constipation, nausea and vomiting Review of Systems General: Reports: 10 or more systems reviewed and unremarkable except in HPI and below GI: Reports: diarrhea; Denies: nausea, vomiting or constipation Skin/Breast: Denies: rash PFSH ED PFSH: Medical History No pertinent past medical history No pertinent family history Social History Smoking and tobacco/nicotine status: never used tobacco/nicotine Alcohol intake: never Substance/Drug Use: never Physical Exam Const: COMMON NORMALS: alert HENMT: COMMON NORMALS: normocephalic HEAD & SCALP: normocephalic Neck/C-Spine: COMMON NORMALS: full ROM Resp: COMMON NORMALS: normal respiratory effort and clear to auscultation bilaterally AUSCULTATION: clear to auscultation bilaterally Cardio: COMMON NORMALS: regular rate and regular rhythm RATE: regular rate RHYTHM: regular rhythm GI: COMMON NORMALS: Soft to palpation PALPATION: Yes Soft to palpation Extremity: COMMON NORMALS: normal to inspection and no pedal edema Neuro: SENSORIUM/ORIENTATION: Yes alert Skin: COMMON NORMALS: turgor normal GENERAL SKIN EXAM: turgor normal Course Vital Signs: Vital signs: Vital Signs Temperature 97.7 F 09/05/23 23:43 Pulse Rate 93 09/05/23 23:43 Respiratory Rate 16 09/05/23 23:43 Blood Pressure 135/83 09/05/23 23:43 Pulse Oximetry 99 09/05/23 23:43 Oxygen Delivery Me thod Room Air 09/05/23 23:43 MDM - Abdominal Pain Medical Decision Making Patient reports today that he comes in due to persistent diarrhea for the last 2 to 3 days. Patient reports eating a chicken sandwich 3 days ago and since then he has had diarrhea. Patient reports 2 episodes of emesis followed by the diarrhea. On exam patient appears nontoxic. Patient appears in mild to no pain. Abdomen soft with minimal tenderness. Vital signs are normal. Differential diagnosis includes but not limited to gastroenteritis, colitis, IBS. CBC and CMP were unremarkable. Patient was given 2 Lomotil for his diarrhea. And 1 L IV fluid for mild dehydration. Patient will will continue with routine diet and follow-up with primary care for further instructions. Return to ED for worsening symptoms such as high fever or blood in vomit or stool. Lab Data 09/06/23 00:30 09/06/23 00:30 Labs/Radiology: Laboratory Results WBC 9.38 10^3/uL (3.29-11.43) 09/06/23 00:30 RBC 5.32 10^6/uL (3.85-5.65) 09/06/23 00:30 Hgb 15.10 g/dL (11.27-16.99) 09/06/23 00:30 Hct 44.9 % (37-53) 09/06/23 00:30 MCV 84.4 fl (82-101) 09/06/23 00:30 MCH 28.4 pg (27-33) 09/06/23 00:30 MCHC 33.6 g/dL (30-55) 09/06/23 00:30 RDW 12.1 % (12.1-15.1) 09/06/23 00:30 Plt Count 281 10^3/cmm (157-399) 09/06/23 00:30 MPV 9.7 fL (7.4-10.4) 09/06/23 00:30 Neut % (Auto) 68.7 % 09/06/23 00:30 Lymph % (Auto) 23.1 % 09/06/23 00:30 [place] % (Auto) 6.2 % 09/06/23 00:30 Eos % (Auto) 1.7 % 09/06/23 00:30 Baso % (Auto) 0.1 % 09/06/23 00:30 Neut # (Auto) 6.44 10^3/uL (1.8-7.7) 09/06/23 00:30 Lymph # (Auto) 2.2 10^3/uL (0.8-4.8) 09/06/23 00:30 [place] # (Auto) 0.6 10^3/uL (0.2-0.9) 09/06/23 00:30 Eos # (Auto) 0.2 10^3/uL (0.0-0.8) 09/06/23 00:30 Baso # (Auto) 0.0 10^3/uL (0.0-0.1) 09/06/23 00:30 Nucleated RBC % (auto) 0 % 09/06/23 00:30 Nucleated RBCs # 0.0 /100WBC 09/06/23 00:30 Sodium 139 mmol/L (136-145) 09/06/23 00:30 Potassium 4.1 mmol/L (3.5-5.1) 09/06/23 00:30 Chloride 106 mmol/L (98-107) 09/06/23 00:30 Carbon Dioxide 22 mmol/L (22-29) 09/06/23 00:30 Anion Gap 15.1 (5-19) 09/06/23 00:30 BUN 17 mg/dL (6-20) 09/06/23 00:30 Creatinine 1.0 mg/dL (0.7-1.2) 09/06/23 00:30 GFR Calculation 87.7 mL/min (90-130) L 09/06/23 00:30 Glucose 117 mg/dL (65-115) H 09/06/23 00:30 Calculated Osmolality 291 mOsm/kg (285-295) 09/06/23 00:30 Calcium 9.3 mg/dL (8.5-10.5) 09/06/23 00:30 Total Bilirubin 0.5 mg/dL (0.15-1.2) 09/06/23 00:30 AST 13 U/L (0-40) 09/06/23 00:30 ALT 15 U/L (0-41) 09/06/23 00:30 Alkaline Phosphatase 91 U/L (40-130) 09/06/23 00:30 Total Protein 7.1 g/dL (6.6-8.7) 09/06/23 00:30 Albumin 4.4 g/dL (3.5-5.2) 09/06/23 00:30 Globulin 2.7 g/dL (1.3-4.6) 09/06/23 00:30 Lipase 29 U/L (13-60) 09/06/23 00:30 No radiology studies performed this visit Discharge Plan Discharge Patient Disposition: Home Clinical Impression: Gastroenteritis Condition: Stable Prescriptions: New diphenoxylate-atropine 2.5-0.025 mg tablet 1 tab PO TID PRN (Reason: diarrhea) Qty: 7 0RF No Action ondansetron HCl 4 mg tablet 4 mg PO Q6H PRN (Reason: nausea and vomiting) Qty: 20 0RF Discharge Orders: Discharge ED (Routine); Ordered 09/06/23 Ordered By: Adan Qiuñones Discharge Diet: Usual diet Discharge Activity: Increase activity as tolerated Patient Instructions: Gastroenteritis (ED) Activity Restrictions/Additional Instructions: Drink plenty of water. Use medications as directed. Follow-up with primary care for further instructions. Return to ED for new concerns. 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
[2023-09-06 00:39] LABS: Basophils % 0.1 %; Eosinophils # 0.2 10^3/uL (0.0-0.8); Eosinophils % 1.7 %; Hematocrit 44.9 % (37-53); Lymphocytes # 2.2 10^3/uL (0.8-4.8); Lymphocytes % 23.1 %; Mean Corpuscular HGB Conc 33.6 g/dL (30-55); Mean Corpuscular Hemoglobin 28.4 pg (27-33); Mean Corpuscular Volume 84.4 fl (82-101); Mean Platelet Volume 9.7 fL (7.4-10.4); Monocytes # 0.6 10^3/uL (0.2-0.9); Monocytes % 6.2 %; Neutrophils # 6.44 10^3/uL (1.8-7.7); Neutrophils % 68.7 %; Nucleated Red Blood Cells % 0 %; Platelet Count 281 10^3/cmm (157-399); Red Blood Count 5.32 10^6/uL (3.85-5.65); Red Cell Distribution Width 12.1 % (12.1-15.1); White Blood Count 9.38 10^3/uL (3.29-11.43)
[2023-09-06 01:00] LABS: Alanine Aminotransferase 15 U/L (0-41); Albumin Level 4.4 g/dL (3.5-5.2); Alkaline Phosphatase 91 U/L (40-130); Anion Gap 15.1 (5-19); Aspartate Amino Transferase 13 U/L (0-40); Blood Urea Nitrogen 17 mg/dL (6-20); Calcium 9.3 mg/dL (8.5-10.5); Carbon Dioxide 22 mmol/L (22-29); Chloride 106 mmol/L (98-107); Creatinine Clr Calc Pharmacy 121.0287; Globulin 2.7 g/dL (1.3-4.6); Glomerular Filtration Rate 87.7 mL/min (90-130); Glucose 117 mg/dL (65-115); Lipase 29 U/L (13-60); Osmolality Calculated 291 mOsm/kg (285-295); Potassium 4.1 mmol/L (3.5-5.1); Sodium 139 mmol/L (136-145); Total Bilirubin 0.5 mg/dL (0.15-1.2); Total Protein 7.1 g/dL (6.6-8.7)
[2023-09-06] MEDS: sodium chloride 0.9% 1,000 ML 999 ML IV (01:01)
[2023-09-06] MEDS: diphenoxylate/atropine Tablet 2 TAB PO (01:01)
[2023-09-06 01:24] VITALS: BP 132/79; PULSE 80; O2SAT 99
[2023-09-06 02:10] VITALS: RESP 14; O2SAT 98
== END 2023-09-06 02:10 | disposition home or self-care (01) ==
PROVIDERS: Emergency Provider Nurse Practitioner Family
DX: K52.9 Noninfective gastroenteritis and colitis, unspecified (principal)
CPT/HCPCS: 36415; 80053; 83690; 85025; 96360; 99284; J7030

== ENCOUNTER 2023-12-08 21:21 | Emergency (ER) | payer MEDICAID, SELFPAY ==
[2023-12-08 21:31] VITALS: BP 147/91; PULSE 93; RESP 20; TEMP 36.6; O2SAT 98; BMI 25.0
--- NOTE | 2023-12-08 22:25 | XRR_ITS ---
PROCEDURE INFORMATION: Exam: XR Left Forearm Exam date and time: 12/08/2023 10:30 PM Age: 28 years old Clinical indication: Arm, lower; Lower or forearm; Prior surgery; Surgery date: 6+ months; Surgery type: Ulnar fixation; Patient HX: C/O pain and swelling to left forearm. No recent injury. ; Additional info: Pain and swelling, HX of surgery TECHNIQUE: Imaging protocol: Radiologic exam of the left forearm. Views: 2 views. COMPARISON: No relevant prior studies available. FINDINGS: Bones/joints: Status post open reduction internal fixation of proximal ulna. There is a portion of expansion of the bone with central lucency which is nonspecific though raises concern for chronic osteomyelitis or Max's abscess. No evidence of acute fracture or dislocation. Soft tissues: Moderate diffuse soft tissue swelling. XR/XR forearm LT 2V [id number] IMPRESSION: Status post open reduction internal fixation of proximal ulna. There is a portion of expansion of the bone with central lucency which is nonspecific though raises concern for chronic osteomyelitis or Max's abscess.
[2023-12-08 23:10] LABS: Basophils % 0.2 %; Eosinophils # 0.1 10^3/uL (0.0-0.8); Eosinophils % 2.6 %; Hematocrit 39.5 % (37-53); Lymphocytes # 2.2 10^3/uL (0.8-4.8); Lymphocytes % 44.7 %; Mean Corpuscular HGB Conc 34.2 g/dL (30-55); Mean Corpuscular Hemoglobin 28.4 pg (27-33); Mean Platelet Volume 9.9 fL (7.4-10.4); Monocytes # 0.6 10^3/uL (0.2-0.9); Monocytes % 11.7 %; Neutrophils # 2.02 10^3/uL (1.8-7.7); Neutrophils % 40.6 %; Nucleated Red Blood Cells % 0 %; Platelet Count 245 10^3/cmm (157-399); Red Blood Count 4.76 10^6/uL (3.85-5.65); Red Cell Distribution Width 12.4 % (12.1-15.1); White Blood Count 4.97 10^3/uL (3.29-11.43)
--- NOTE | 2023-12-08 23:28 | ED_ITS ---
HPI - Extremity Problem 2 General: Chief complaint: Extremity Problem,Nontraumatic Stated complaint: left arm injury Time Seen by Provider: 12/08/23 21:55 History of Present Illness: 28-year-old male with a history of proxi mal ulnar fracture in the distant past treated with ORIF. He presents with intermittent forearm pain and swelling. He notes that forearm has been swollen for a couple of days, feels tight, and is painful. There is no redness. No fever. No numbness or tingling. He says that he has had this problem a couple of times since his surgery. He is concerned about a blood clot in his arm. Associated symptoms: Deny chest pain, fever(s) or rash Review of Systems 2 Const: Denies: fever(s), chills or body aches Card: Denies: chest pain or palpitations Resp: Reports: dyspnea and non-productive cough; Denies: productive cough or wheezing GI: Denies: abdominal pain, nausea, vomiting, diarrhea or hematochezia Skin/Breast: Denies: rash PFSH ED 2 PFSH: Medical History No pertinent past medical history No pertinent family history Social History Smoking and tobacco/nicotine status: never used tobacco/nicotine Alcohol intake: never Substance/Drug Use: never Physical Exam 2 Const: COMMON NORMALS: no acute distress GENERAL APPEARANCE: cooperative; not ill appearing and not frail appearing HENMT: COMMON NORMALS: normocephalic, atraumatic and Normal external nose present HEAD & SCALP: normocephalic and atraumatic FACE & SINUS: normal facial exam and face symmetric NOSE: Normal external nose present Eye: COMMON NORMALS: Equal, round and reactive pupils present and EOMs intact bilaterally PUPIL: Yes Equal, round and reactive pupils present Neck/C-Spine: GENERAL: Yes trachea midline Chest: CHEST: Yes Symmetrical chest wall rise Resp: COMMON NORMALS: normal respiratory effort, No retractions and No use of accessory muscles Cardio: COMMON NORMALS: regular rate and regular rhythm RATE: regular rate RHYTHM: regular rhythm GI: COMMON NORMALS: Normal to inspection, nondistended, normoactive bowel sounds present Extremity: COMMON NORMALS: no pedal edema NARRATIVE EXTREMITY EXAM: Examination left upper extremity reveals no deformity. There is diffuse forearm swelling. Diffuse tenderness to palpation. Range of motion at the elbow is essentially normal. Range of motion at the wrist is intact. No numbness or tingling noted on sensory exam. Pulses are normal. There is no excruciating pain with flexion or extension passively that would be indicative of compartment syndrome. Neuro: ARNAUD COMA SCALE: document GCS findings Arnaud coma scale eye opening: Spontaneous Gardner coma scale verbal response: Orientated Arnaud coma scale motor response: Obey commands Gardner coma scale total score: 15 S ENSORY EXAM: Yes extremities (intact) Psych: COMMON NORMALS: speech normal SPEECH: Yes normal speech Skin: COMMON NORMALS: no rashes or lesions noted GENERAL SKIN EXAM: no rashes or lesions noted Course 2 Vital Signs: Vital signs: Vital Signs Temperature 97.9 F 12/08/23 21:31 Pulse Rate 93 12/08/23 21:31 Respiratory Rate 20 H 12/08/23 21:31 Blood Pressure 147/91 12/08/23 21:31 Pulse Oximetry 98 12/08/23 21:31 Oxygen Delivery Me thod Room Air 12/08/23 21:31 MDM - Extremity (Nontraumatic) Medical Decision Making 28-year-old male with left forearm pain and swelling. X-ray reveals intact hardware. There is a faint lucency across the fracture site of unknown significance. CRP is essentially normal. Sed rate is normal. White blood cell count is normal. He has no clinical signs of compartment syndrome. D-dimer was negative. Ultrasound is performed and shows no DVT.. Case management will be asked to make the patient a follow-up orthopedics appointment. He will be allowed home otherwise. Lab Data 12/08/23 23:00 12/08/23 23:00 Radiology Impressions Forearm X-Ray 12/08/23 22:25 IMPRESSION: Status post open reduction internal fixation of proximal ulna. There is a portion of expansion of the bone with central lucency which is nonspecific though raises concern for chronic osteomyelitis or Max's abscess. Laboratory Results WBC 4.97 10^3/uL (3.29-11.43) 12/08/23 23:00 RBC 4.76 10^6/uL (3.85-5.65) 12/08/23 23:00 Hgb 13.50 g/dL (11.27-16.99) 12/08/23 23:00 Hct 39.5 % (37-53) 12/08/23 23:00 MCV 83.0 fl (82-101) 12/08/23 23:00 MCH 28.4 pg (27-33) 12/08/23 23:00 MCHC 34.2 g/dL (30-55) 12/08/23 23:00 RDW 12.4 % (12.1-15.1) 12/08/23 23:00 Plt Count 245 10^3/cmm (157-399) 12/08/23 23:00 MPV 9.9 fL (7.4-10.4) 12/08/23 23:00 Neut % (Auto) 40.6 % 12/08/23 23:00 Lymph % (Auto) 44.7 % 12/08/23 23:00 [place] % (Auto) 11.7 % 12/08/23 23:00 Eos % (Auto) 2.6 % 12/08/23 23:00 Baso % (Auto) 0.2 % 12/08/23 23:00 Neut # (Auto) 2.02 10^3/uL (1.8-7.7) 12/08/23 23:00 Lymph # (Auto) 2.2 10^3/uL (0.8-4.8) 12/08/23 23:00 [place] # (Auto) 0.6 10^3/uL (0.2-0.9) 12/08/23 23:00 Eos # (Auto) 0.1 10^3/uL (0.0-0.8) 12/08/23 23:00 Baso # (Auto) 0.0 10^3/uL (0.0-0.1) 12/08/23 23:00 Nucleated RBC % (auto) 0 % 12/08/23 23:00 Nucleated RBCs # 0.0 /100WBC 12/08/23 23:00 ESR 3 mm/hr (0-10) 12/08/23 23:00 D-Dimer 0.30 ug/mLFEU (0-0.59) 12/08/23 23:00 Sodium 140 mmol/L (136-145) 12/08/23 23:00 Potassium 3.5 mmol/L (3.5-5.1) 12/08/23 23:00 Chloride 104 mmol/L (98-107) 12/08/23 23:00 Carbon Dioxide 26 mmol/L (22-29) 12/08/23 23:00 Anion Gap 13.5 (5-19) 12/08/23 23:00 BUN 18 mg/dL (6-20) 12/08/23 23:00 Creatinine 1.1 mg/dL (0.7-1.2) 12/08/23 23:00 GFR Calculation 78.6 mL/min (90-130) L 12/08/23 23:00 Glucose 125 mg/dL (65-115) H 12/08/23 23:00 Calculated Osmolality 293 mOsm/kg (285-295) 12/08/23 23:00 Calcium 9.4 mg/dL (8.5-10.5) 12/08/23 23:00 Total Bilirubin 0.2 mg/dL (0.15-1.2) 12/08/23 23:00 AST 15 U/L (0-40) 12/08/23 23:00 ALT 19 U/L (0-41) 12/08/23 23:00 Alkaline Phosphatase 92 U/L (40-130) 12/08/23 23:00 C-Reactive Protein 6.3 mg/L (0.0-4.9) H 12/08/23 23:00 Total Protein 6.8 g/dL (6.6-8.7) 12/08/23 23:00 Albumin 4.0 g/dL (3.5-5.2) 12/08/23 23:00 Globulin 2.8 g/dL (1.3-4.6) 12/08/23 23:00 All radiology interpretation(s) finalized by discharge Discharge Plan Discharge Patient Disposition: Home Clinical Impression: Left forearm pain Condition: Stable Prescriptions: New ketorolac 10 mg tablet 10 mg PO TID PRN (Reason: pain) Qty: 10 0RF No Action ondansetron HCl 4 mg tablet 4 mg PO Q6H PRN (Reason: nausea and vomiting) Qty: 20 0RF diphenoxylate-atropine 2.5-0.025 mg tablet 1 tab PO TID PRN (Reason: diarrhea) Qty: 7 0RF Discharge Orders: Discharge ED (Routine); Ordered 12/09/23 Ordered By: Chencho Gore Patient Instructions: Arm Pain (ED), Opioid Safety, Pain Management Activity Restrictions/Additional Instructions: Testing did not reveal a definite cause of your pain today or swelling. There is no evidence of blood clot, no definite evidence of infection, etc. Case management will attempt to make you a follow-up appointment with orthopedics regarding your intermittent pain and swelling. You should get a call from them this week. In the meantime, medication should help with pain and swelling. Ice may help as well. 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
[2023-12-08 23:30] LABS: Alanine Aminotransferase 19 U/L (0-41); Alkaline Phosphatase 92 U/L (40-130); Anion Gap 13.5 (5-19); Aspartate Amino Transferase 15 U/L (0-40); Blood Urea Nitrogen 18 mg/dL (6-20); C Reactive Protein 6.3 mg/L (0.0-4.9); Calcium 9.4 mg/dL (8.5-10.5); Carbon Dioxide 26 mmol/L (22-29); Chloride 104 mmol/L (98-107); Creatinine Clr Calc Pharmacy 111.2861; Erythrocyte Sedimentation Rate 3 mm/hr (0-10); Globulin 2.8 g/dL (1.3-4.6); Glomerular Filtration Rate 78.6 mL/min (90-130); Glucose 125 mg/dL (65-115); Osmolality Calculated 293 mOsm/kg (285-295); Potassium 3.5 mmol/L (3.5-5.1); Sodium 140 mmol/L (136-145); Total Bilirubin 0.2 mg/dL (0.15-1.2); Total Protein 6.8 g/dL (6.6-8.7)
--- NOTE | 2023-12-09 00:05 | USR_ITS ---
PROCEDURE INFORMATION: Exam: US Duplex Left Upper Extremity Veins, Limited Exam date and time: 12/09/2023 12:47 AM Age: 28 years old Clinical indication: Edema, localized; Upper extremity, left; Additional info: Swelling pain to forearm TECHNIQUE: Imaging protocol: Real-time duplex ultrasound of the left extremity with 2-D vivas scale, color Doppler flow and spectral waveform analysis including responses to compression and other maneuvers (when performed) with image documentation. Limited exam focused on the left upper extremity veins. COMPARISON: CR ( EX, ) 12/08/2023 10:30 PM FINDINGS: Left deep veins: Unremarkable. Axillary and brachial veins are patent throughout without thrombus. Normal Doppler waveforms. Normal compressibility and/or augmentation response. Visualized internal jugular and subclavian veins are patent. Superficial veins: Unremarkable. Visualized cephalic and basilic veins are patent without thrombus. Soft tissues: Unremarkable. US/[place] [id number] IMPRESSION: No evidence of deep vein thrombosis.
[2023-12-09] MEDS: oxyCODONE-APAP 5-325 mg Tablet 1 TAB PO (01:28)
[2023-12-09] MEDS: ketorolac 10 mg Tablet PO (01:28)
[2023-12-09] MEDS: dexamethasone 4 mg Tablet 10 MG PO (01:28)
[2023-12-09 01:33] VITALS: PULSE 90; RESP 18; O2SAT 97
--- NOTE | 2023-12-09 07:15 | DCPLANNER ---
Message sent to ortho for a follow up orthopedics regarding your intermittent pain and swelling.
== END 2023-12-09 01:31 | disposition home or self-care (01) ==
PROVIDERS: Emergency Provider Emergency Medicine
DX: M79.632 Pain in left forearm (principal)
CPT/HCPCS: 36415; 73090; 80053; 85025; 85378; 85651; 86140; 93971; 99284; J8540

== ENCOUNTER 2024-03-12 11:59 | Emergency (ER) | payer SELFPAY ==
[2024-03-12 12:10] VITALS: BP 130/79; PULSE 85; RESP 18; TEMP 36.8; O2SAT 99; BMI 23.7
--- NOTE | 2024-03-12 12:10 | XR_ITS ---
WS: [id number] Exam: XR knee RT 3V* [id number] Date/Time of Exam: 03/12/2024 12:10 PM Reason For Exam: pain No fracture or dislocation. The joints are preserved. Soft tissues are unremarkable as visualized. XR/XR knee RT 3V* [id number] IMPRESSION: 1. Negative RIGHT knee.
--- NOTE | 2024-03-12 12:12 | ED_ITS ---
HPI - Extremity Problem General: Chief complaint: Extremity Injury, Lower Stated complaint: right knee pain Time Seen by Provider: 03/12/24 12:10 Source: patient Mode of arrival: ambulatory History of Present Illness: 29-year-old male presents to the emergen cy room complaining of right knee pain. He was at a local convenience store slipped on some water he did not go all the way down he caught himself on the edge of the countertop. He is complaining of right knee pain he ambulated here after the fall. No previous injuries to that knee no previous surgeries. MD Complaint: joint pain Onset (ago): minute(s) Pain Consistency: constant Location: right and knee Quality: sharp Relieving factors: nothing and rest Exacerbating factors: weight bearing and walking Associated symptoms: Deny chest pain, fever(s) or rash Review of Systems Const: Denies: fever(s) or chills Card: Denies: chest pain Resp: Denies: dyspnea GI: Denies: abdominal pain Musc: Reports: joint pain (Right knee); Denies: neck pain or back pain Skin/Breast: Denies: rash PFSH ED PFSH: Medical History No pertinent past medical history No pertinent family history Social History Smoking and tobacco/nicotine status: never used tobacco/nicotine Alcohol intake: never Substance/Drug Use: never Physical Exam Const: GENERAL APPEARANCE: cooperative and comfortable ORIENTATION/CONSCIOUSNESS: Yes awake, Yes oriented to person, Yes oriented to place and Yes oriented to time HENMT: COMMON NORMALS: normocephalic, atraumatic and hearing grossly normal bilaterally HEAD & SCALP: normocephalic and atraumatic Resp: COMMON NORMALS: normal respiratory effort, No retractions, No use of accessory muscles and clear to auscultation bilaterally AUSCULTATION: clear to auscultation bilaterally Cardio: COMMON NORMALS: regular rate, regular rhythm and No murmurs present (Cardio) RATE: regular rate RHYTHM: regular rhythm Extremity: COMMON NORMALS: normal to inspection, capillary refill normal, no clubbing, cyanosis or edema, no calf tenderness and no pedal edema OTHER: Examination of the right knee no ligamentous instability or laxity. Small amount of joint effusion on physical exam. No swelling no deformity. X-rays negative Neuro: SENSORIUM/ORIENTATION: Yes oriented to person, Yes oriented to place and Yes oriented to time Skin: COMMON NORMALS: no rashes or lesions noted GENERAL SKIN EXAM: no rashes or lesions noted Course Vital Signs: Vital signs: Vital Signs Temperature 98.3 F 03/12/24 12:10 Pulse Rate 82 03/12/24 12:55 Respiratory Rate 18 03/12/24 12:19 Blood Pressure 130/79 03/12/24 12:19 Pulse Oximetry 98 03/12/24 12:55 Oxygen Delivery Me thod Room Air 03/12/24 12:19 MDM - Extremity (Nontraumatic) Medical Decision Making Plain x-rays negative. Will place in knee immobilizer and crutches refer patient to orthopedic clinic can use diclofenac as needed for now. Nonweightbearing. Medical Records I reviewed the patient's medical records. Lab Data I reviewed the patient's lab results. Radiology Impressions Knee X-Ray 03/12/24 12:10 IMPRESSION: 1. Negative RIGHT knee. All radiology interpretation(s) finalized by discharge Discharge Plan Discharge Patient Disposition: Home Clinical Impression: Right knee sprain Condition: Stable Prescriptions: New diclofenac sodium 75 mg tablet,delayed release (DR/EC) 75 mg PO Q12H PRN (Reason: pain) Qty: 20 0RF Discontinued ketorolac 10 mg tablet 10 mg PO TID PRN (Reason: pain) Qty: 10 0RF No Action ondansetron HCl 4 mg tablet 4 mg PO Q6H PRN (Reason: nausea and vomiting) Qty: 20 0RF diphenoxylate-atropine 2.5-0.025 mg tablet 1 tab PO TID PRN (Reason: diarrhea) Qty: 7 0RF Discharge Orders: Discharge ED (Routine); Ordered 03/12/24 Ordered By: Jono Clarke Discharge Diet: Usual diet Discharge Activity: Limit activity as instructed Patient Instructions: Opioid Safety, Pain Management Activity Restrictions/Additional Instructions: Thank you for choosing [facility] for your healthcare needs today. It is very important that you follow up as instructed or that you return to the Emergency Department should you have concerns or if your condition changes or wo rsens in any way. You were seen today for complaint of injury to your right knee. X-ray did not show any acute fractures. This does not rule out ligamentous injury however. Since you are complaining of discomfort there is a mild bit of swelling in that knee would recommend a knee immobilizer and nonweightbearing. Case management make arrangements for follow-up with orthopedics for further evaluation. You can use diclofenac as needed for discomfort. No weightbearing on the right knee until cleared by orthopedics. 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
[2024-03-12 12:19] VITALS: BP 130/79; PULSE 91; RESP 18; O2SAT 98
[2024-03-12 12:55] VITALS: PULSE 82; O2SAT 98
--- NOTE | 2024-03-12 22:58 | DCPLANNER ---
Message sent to Ortho for follow up-right knee sprain
== END 2024-03-12 12:56 | disposition home or self-care (01) ==
PROVIDERS: Emergency Provider Family Medicine
DX: S83.91XA Sprain of unspecified site of right knee, initial encounter (principal); W01.0XXA Fall on same level from slipping, tripping and stumbling without subsequent striking against object, initial encounter; Y92.512 Supermarket, store or market as the place of occurrence of the external cause
CPT/HCPCS: 29530; 73562; 99283; E0114

== ENCOUNTER 2024-04-13 11:54 | Emergency (ER) | payer SELFPAY ==
--- NOTE | 2024-04-13 11:55 | XR_ITS ---
WS: [id number] PORTABLE CHEST HISTORY: cp COMPARISON: 07/21/2023 BB like metallic foreign body projects over the LEFT apex, unchanged since 07/21/2023. Lungs are clear and well expanded. No pleural effusion or pneumothorax. Cardiac size: Normal. Mediastinum/Aorta: Normal mediastinum. Healed fracture mid LEFT clavicle. XR/XR chest 1V portable [id number] IMPRESSION: Unremarkable portable chest.
--- NOTE | 2024-04-13 11:55 | ECG_ITS ---
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 Measurements Intervals [place] Rate: 73 P: 62 [place]: 157 QRS: 83 QRSD: 88 T: 57 QT: 383 QTc: 423 Interpretive Statements SINUS RHYTHM VOLTAGE CRITERIA FOR LVH [MEETS CRITERIA IN ONE OF: R(aVL), S(V1), R(V5), R(V5/V6)+S(V1)] Compared to ECG 12/06/2022 19:20:19 Left ventricular hypertrophy now present Electronically Signed On 04-13-2024 12:45:12 CDT by Burton Barton M.D. [id number] f
[2024-04-13 12:09] VITALS: BP 120/78; PULSE 66; RESP 16; TEMP 36.4; O2SAT 100; BMI 23.0
--- NOTE | 2024-04-13 12:52 | W.ED.NAVMDI ---
HPI - Nausea/Vomiting/Diarrhea General: Chief complaint: Nausea/Vomiting/Diarrhea Stated complaint: SOB /chest pains Time Seen by Provider: 04/13/24 12:27 History of Present Illness: 29-year-old male presents emergency complaining of nausea vomiting some mild chest discomfort. He states it was worse after he used marijuana. He has been vomiting quite a bit at home as well. No hematemesis or coffee-ground emesis no history of palpitations or arrhythmias no history of any coronary disease no history of previous DVT. No recent fever sweats chills or productive cough Associated nausea: Yes Associated symtoms: Reports chest pain and nausea; Denies dysuria Review of Systems Const: Denies: fever(s) or chills Card: Reports: chest pain Resp: Denies: dyspnea GI: Reports: abdominal pain, nausea and vomiting : Denies: dysuria, urinary frequency or urinary urgency Musc: Denies: neck pain or back pain Skin/Breast: Denies: rash PFSH ED PFSH: Medical History No pertinent past medical history No pertinent family history Social History Smoking and tobacco/nicotine status: never used tobacco/nicotine Alcohol intake: never Substance/Drug Use: never Physical Exam Const: GENERAL APPEARANCE: cooperative and comfortable ORIENTATION/CONSCIOUSNESS: Yes awake, Yes oriented to person, Yes oriented to place and Yes oriented to time HENMT: COMMON NORMALS: normocephalic, atraumatic and hearing grossly normal bilaterally HEAD & SCALP: normocephalic and atraumatic Resp: COMMON NORMALS: normal respiratory effort, No retractions, No use of accessory muscles and clear to auscultation bilaterally AUSCULTATION: clear to auscultation bilaterally Cardio: COMMON NORMALS: regular rate, regular rhythm and No murmurs present (Cardio) RATE: regular rate RHYTHM: regular rhythm GI: COMMON NORMALS: Soft to palpation and No hepatosplenomegaly present AUSCULTATION: Yes normoactive bowel sounds PALPATION: Yes Soft to palpation, No Tenderness to palpation present (GI), No Guarding due to palpation present (GI) and Yes No hepatosplenomegaly present Extremity: COMMON NORMALS: normal to inspection, capillary refill normal, no clubbing, cyanosis or edema, no calf tenderness and no pedal edema Neuro: SENSORIUM/ORIENTATION: Yes oriented to person, Yes oriented to place and Yes oriented to time Skin: COMMON NORMALS: no rashes or lesions noted GENERAL SKIN EXAM: no rashes or lesions noted Course Vital Signs: Vital signs: Vital Signs Temperature 97.6 F 04/13/24 14:56 Pulse Rate 80 04/13/24 14:56 Respiratory Rate 14 04/13/24 14:56 Blood Pressure 128/65 04/13/24 14:56 Pulse Oximetry 99 04/13/24 14:56 Oxygen Delivery Me thod Room Air 04/13/24 13:33 MDM - Nausea/Vomiting/Diarrhea Medical Decision Making Improved with medications given no follow-up will Betty the fluids. Will discharge patient home encouraged to decrease or avoid use of marijuana products. Given promethazine to use. follow-up with primary care as needed. Lab Data 04/13/24 13:18 04/13/24 13:18 Radiology Impressions Chest X-Ray 04/13/24 11:55 IMPRESSION: Unremarkable portable chest. Laboratory Results WBC 11.32 10^3/uL (3.29-11.43) 04/13/24 13:18 RBC 5.44 10^6/uL (3.85-5.65) 04/13/24 13:18 Hgb 15.60 g/dL (11.27-16.99) 04/13/24 13:18 Hct 46.3 % (37-53) 04/13/24 13:18 MCV 85.1 fl (82-101) 04/13/24 13:18 MCH 28.7 pg (27-33) 04/13/24 13:18 MCHC 33.7 g/dL (30-55) 04/13/24 13:18 RDW 12.9 % (12.1-15.1) 04/13/24 13:18 Plt Count 275 10^3/cmm (157-399) 04/13/24 13:18 MPV 10.0 fL (7.4-10.4) 04/13/24 13:18 Neut % (Auto) 81.7 % 04/13/24 13:18 Lymph % (Auto) 13.2 % 04/13/24 13:18 Hardin % (Auto) 4.4 % 04/13/24 13:18 Eos % (Auto) 0.3 % 04/13/24 13:18 Baso % (Auto) 0.2 % 04/13/24 13:18 Neut # (Auto) 9.26 10^3/uL (1.8-7.7) H 04/13/24 13:18 Lymph # (Auto) 1.5 10^3/uL (0.8-4.8) 04/13/24 13:18 Hardin # (Auto) 0.5 10^3/uL (0.2-0.9) 04/13/24 13:18 Eos # (Auto) 0.0 10^3/uL (0.0-0.8) 04/13/24 13:18 Baso # (Auto) 0.0 10^3/uL (0.0-0.1) 04/13/24 13:18 Nucleated RBC % (auto) 0 % 04/13/24 13:18 Nucleated RBCs # 0.0 /100WBC 04/13/24 13:18 Sodium 138 mmol/L (136-145) 04/13/24 13:18 Potassium 4.1 mmol/L (3.5-5.1) 04/13/24 13:18 Chloride 98 mmol/L (98-107) 04/13/24 13:18 Carbon Dioxide 28 mmol/L (22-29) 04/13/24 13:18 Anion Gap 16.1 (5-19) 04/13/24 13:18 BUN 18 mg/dL (6-20) 04/13/24 13:18 Creatinine 1.0 mg/dL (0.7-1.2) 04/13/24 13:18 GFR Calculation 87.2 mL/min (90-130) L 04/13/24 13:18 Glucose 114 mg/dL (65-115) 04/13/24 13:18 Calculated Osmolality 289 mOsm/kg (285-295) 04/13/24 13:18 Calcium 9.9 mg/dL (8.5-10.5) 04/13/24 13:18 Total Bilirubin 0.5 mg/dL (0.15-1.2) 04/13/24 13:18 AST 22 U/L (0-40) 04/13/24 13:18 ALT 28 U/L (0-41) 04/13/24 13:18 Alkaline Phosphatase 106 U/L (40-130) 04/13/24 13:18 Troponin T Baseline < 6 ng/L (0-15) 04/13/24 13:18 NT-Pro-B Natriuret Pep < 36 pg/mL (0-125) 04/13/24 13:18 Total Protein 8.3 g/dL (6.6-8.7) 04/13/24 13:18 Albumin 4.9 g/dL (3.5-5.2) 04/13/24 13:18 Globulin 3.4 g/dL (1.3-4.6) 04/13/24 13:18 All radiology interpretation(s) finalized by discharge Discharge Plan Discharge Patient Disposition: Home Clinical Impression: Cannabinoid hyperemesis syndrome Condition: Stable Prescriptions: New promethazine 25 mg tablet 25 mg PO Q6H PRN (Reason: nausea and vomiting) Qty: 20 0RF Discharge Orders: Discharge ED (Routine); Ordered 04/13/24 Ordered By: Jono Clarke Discharge Diet: Full LIquid Discharge Activity: Increase activity as tolerated Patient Instructions: Opioid Safety, Pain Management Activity Restrictions/Additional Instructions: Thank you for choosing [facility] for your healthcare needs today. It is very important that you follow up as instructed or that you return to the Emergency Department should you have concerns or if your condition changes or worsens in any way. You are seen emergency room complaint of chest comfort nausea vomiting symptoms improved with medications given your cardiac enzymes and EKG were normal. 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
[2024-04-13 13:24] LABS: Basophils % 0.2 %; Eosinophils % 0.3 %; Hematocrit 46.3 % (37-53); Lymphocytes # 1.5 10^3/uL (0.8-4.8); Lymphocytes % 13.2 %; Mean Corpuscular HGB Conc 33.7 g/dL (30-55); Mean Corpuscular Hemoglobin 28.7 pg (27-33); Mean Corpuscular Volume 85.1 fl (82-101); Monocytes # 0.5 10^3/uL (0.2-0.9); Monocytes % 4.4 %; Neutrophils # 9.26 10^3/uL (1.8-7.7); Neutrophils % 81.7 %; Nucleated Red Blood Cells % 0 %; Platelet Count 275 10^3/cmm (157-399); Red Blood Count 5.44 10^6/uL (3.85-5.65); Red Cell Distribution Width 12.9 % (12.1-15.1); White Blood Count 11.32 10^3/uL (3.29-11.43)
[2024-04-13] MEDS: haloperidol inj 5 mg/mL INJ 1 mL 2.5 MG IVP (13:26)
[2024-04-13] MEDS: sodium chloride 0.9% 1,000 ML 999 ML IV (13:27)
[2024-04-13] MEDS: LORazepam 2 mg/mL INJ 1 mL 1 MG IVP (13:27)
[2024-04-13 13:33] VITALS: BP 128/65; PULSE 80; RESP 14; O2SAT 99
[2024-04-13 13:45] LABS: Troponin(5th) Baseline < 6 ng/L (0-15)
[2024-04-13 13:54] LABS: Alanine Aminotransferase 28 U/L (0-41); Albumin Level 4.9 g/dL (3.5-5.2); Alkaline Phosphatase 106 U/L (40-130); Anion Gap 16.1 (5-19); Aspartate Amino Transferase 22 U/L (0-40); Blood Urea Nitrogen 18 mg/dL (6-20); Calcium 9.9 mg/dL (8.5-10.5); Carbon Dioxide 28 mmol/L (22-29); Chloride 98 mmol/L (98-107); Creatinine Clr Calc Pharmacy 117.1817; Globulin 3.4 g/dL (1.3-4.6); Glomerular Filtration Rate 87.2 mL/min (90-130); Glucose 114 mg/dL (65-115); NT Pro B Type Natriuretic Pept < 36 pg/mL (0-125); Osmolality Calculated 289 mOsm/kg (285-295); Potassium 4.1 mmol/L (3.5-5.1); Sodium 138 mmol/L (136-145); Total Bilirubin 0.5 mg/dL (0.15-1.2); Total Protein 8.3 g/dL (6.6-8.7)
--- NOTE | 2024-04-13 13:55 | ECG_ITS ---
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 Measurements Intervals [place] Rate: 78 P: 62 [place]: 164 QRS: 73 QRSD: 98 T: 57 QT: 378 QTc: 431 Interpretive Statements SINUS RHYTHM NONSPECIFIC T-WAVE ABNORMALITY Compared to ECG 04/13/2024 11:57:07 T-wave abnormality now present Left ventricular hypertrophy no longer present Electronically Signed On 04-13-2024 16:28:01 CDT by Burton Barton M.D. [email or web address].[employer]/store/OM/[id number]/[id number]
[2024-04-13 14:56] VITALS: BP 128/65; PULSE 80; RESP 14; TEMP 36.4; O2SAT 99
== END 2024-04-13 14:57 | disposition home or self-care (01) ==
PROVIDERS: Emergency Medicine; Emergency Provider Family Medicine
DX: R11.2 Nausea with vomiting, unspecified (principal); F12.90 Cannabis use, unspecified, uncomplicated
CPT/HCPCS: 71045; 80053; 83880; 84484; 85025; 93005; 96374; 96375; 99285; J1630; J2060; J7030

== ENCOUNTER 2024-04-30 16:57 | Emergency (ER) | payer SELFPAY ==
[2024-04-30] VITALS (7 sets, daily range): BP systolic 102–124; BP diastolic 61–76; PULSE 90–108; RESP 13–19; TEMP 37.7; O2SAT 21–96; BMI 23.0
--- NOTE | 2024-04-30 17:06 | XRR_ITS ---
PROCEDURE INFORMATION: Exam: XR Chest Exam date and time: 04/30/2024 5:10 PM Age: 29 years old Clinical indication: Shortness of breath and other: Unresponsive; Additional info: Cp TECHNIQUE: Imaging protocol: Radiologic exam of the chest. Views: 1 view. COMPARISON: CR XR chest 1V portable [id number] 04/13/2024 12:16 PM FINDINGS: Lungs: Unremarkable. No consolidation. Pleural spaces: Unremarkable. No pleural effusion. No pneumothorax. Heart/Mediastinum: Unremarkable. No cardiomegaly. Bones/joints: Unremarkable. XR/XR chest 1V portable [id number] IMPRESSION: No acute findings.
--- NOTE | 2024-04-30 17:06 | CTR_ITS ---
PROCEDURE INFORMATION: Exam: CT Head Without Contrast Exam date and time: 04/30/2024 6:05 PM Age: 29 years old Clinical indication: Pain; Headache TECHNIQUE: Imaging protocol: Computed tomography of the head without contrast. Radiation optimization: All CT scans at this facility use at least one of these dose optimization techniques: automated exposure control; mA and/or kV adjustment per patient size (includes targeted exams where dose is matched to clinical indication); or iterative reconstruction. COMPARISON: CT head wo con* [id number] 12/06/2022 7:54 PM RADIATION DOSE METRICS: Total DLP (mGy-cm): 1093 FINDINGS: Brain: Normal. No hemorrhage. Unremarkable white matter. No mass effect. Cerebral ventricles: No ventriculomegaly. Paranasal sinuses: Visualized sinuses are unremarkable. No fluid levels. Mastoid air cells: Visualized mastoid air cells are well aerated. Bones: Unremarkable. No acute fracture. Soft tissues: Unremarkable. CT/CT head wo con* [id number] IMPRESSION: No acute intracranial abnormality.
--- NOTE | 2024-04-30 17:07 | ECG_ITS ---
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 Measurements Intervals [place] Rate: 99 P: 74 [place]: 129 QRS: 82 QRSD: 94 T: 70 QT: 326 QTc: 418 Interpretive Statements SINUS RHYTHM Compared to ECG 04/13/2024 13:39:06 T-wave abnormality no longer present Electronically Signed On 05-01-2024 7:52:08 CDT by Burton Barton M.D. [email or web address] [email or web address]/store/OM/[id number]
[2024-04-30] MEDS: sodium chloride 0.9% 1,000 ML 999 ML IV ×2 (17:23→17:43)
--- NOTE | 2024-04-30 17:28 | ED_ITS ---
Documented by User: Rory Peters MD 04/30/24 17:41 HPI - General Adult 2 General: Chief complaint: General Medical Stated complaint: unknown sickness Time Seen by Provider: 04/30/24 17:04 Source: patient Mode of arrival: ambulatory Limitations: no limitations History of Present Illness: 29-year-old male states that he has been having full body aches along with some shortness of breath headache and low-grade fever since this morning. He states that he does smoke marijuana but did not smoke today. He states he is concerned he may be getting poisoned by his neighbors but is unsure. He denies any diarrhea. He denies any cough he does have a temp here 99.8. When asking where he hurts he just states all over along with a headache. Associated symptoms: Reports dyspnea; Deny chest pain, headache(s), rash or vomiting Related Data Previous Rx's Medication Instructions Recorded promethazine 25 mg tablet 25 mg PO Q6H PRN nausea and 04/13/24 vomiting #20 tabs doxycycline hyclate 100 mg capsule 100 mg PO BID 7 days #14 caps 04/30/24 Allergies Allergy/AdvReac Type Severity Reaction Status Date / Time No Known Allergies Allergy Verified 12/08/23 21:35 Review of Systems 2 Const: Reports: fever(s), chills and body aches; Denies: change in appetite Eyes: Denies: blurry vision or eye discomfort ENMT: Denies: throat pain or dental pain Card: Denies: chest pain Resp: Reports: dyspnea GI: Denies: abdominal pain, vomiting or diarrhea : Denies: dysuria Musc: Denies: neck pain or back pain Skin/Breast: Denies: rash Neuro: Denies: headache(s) PFSH ED 2 PFSH: Medical History No pertinent past medical history No pertinent family history Social History Smoking and tobacco/nicotine status: never used tobacco/nicotine Alcohol intake: never Substance/Drug Use: never Physical Exam 2 Const: COMMON NORMALS: patient oriented x3 HENMT: COMMON NORMALS: normocephalic and atraumatic HEAD & SCALP: n ormocephalic and atraumatic Eye: COMMON NORMALS: Equal, round and reactive pupils present and EOMs intact bilaterally PUPIL: Yes Equal, round and reactive pupils present Neck/C-Spine: COMMON NORMALS: full ROM, supple and no meningeal signs G ENERAL: No Meningeal signs present Chest: COMMONS NORMALS: normal inspection of the chest and normal palpation of entire chest wall Resp: COMMON NORMALS: normal respiratory effort, No retractions, No use of accessory muscles and clear to auscultation bilaterally AUSCULTATION: clear to auscultation bilaterally Cardio: COMMON NORMALS: regular rhythm and No murmurs present (Cardio) R ATE: tachycardic RHYTHM: regular rhythm GI: COMMON NORMALS: Normal to inspection, nondistended, normoactive bowel sounds present, Soft to palpation, non-tender and no masses PALPATION: Yes Soft to palpation Extremity: COMMON NORMALS: normal to inspection and full ROM Neuro: COMMON NORMALS: patient oriented x3, moves all extremities and no focal motor deficits MENINGEAL SIGNS: Yes no meningeal signs Psych: COMMON NORMALS: mental status grossly normal, Normal thought process present and cooperative THOUGHT PROCESS: Normal thought process present Skin: COMMON NORMALS: no rashes or lesions noted and no wounds GENERAL SKIN EXAM: no rashes or lesions noted Course 2 Vital Signs: Vital signs: Vital Signs Temperature 99.8 F H 04/30/24 17:18 Pulse Rate 95 04/30/24 20:26 Respiratory Rate 19 H 04/30/24 19:43 Blood Pressure 108/66 04/30/24 20:26 Pulse Oximetry 21 L 04/30/24 20:26 Oxygen Delivery Me thod Room Air 04/30/24 18:00 MDM - General Adult Medical Decision Making Patient presents here with bodyaches also slight headache he does have a low- grade fever here is likely a viral syndrome and give him sepsis bolus checking labs along with urinalysis we will get a head CT patient's pending his labs and imaging and care turned over to Dr. Schreiber at this time Medical Records I reviewed the patient's medical records. Lab Data I reviewed the patient's lab results. 04/30/24 17:26 04/30/24 17:26 Radiology Impressions Chest X-Ray 04/30/24 17:06 IMPRESSION: No acute findings. Head CT 04/30/24 17:06 IMPRESSION: No acute intracranial abnormality. Laboratory Results WBC 5.45 10^3/uL (3.29-11.43) 04/30/24 17: RBC 5.52 10^6/uL (3.85-5.65) 04/30/24 17: Hgb 15.70 g/dL (11.27-16.99) 04/30/24 17: Hct 46.8 % (37-53) 04/30/24 17: MCV 84.8 fl (82-101) 04/30/24 17:26 MCH 28.4 pg (27-33) 04/30/24 17: MCHC 33.5 g/dL (30-55) 04/30/24 17: RDW 12.5 % (12.1-15.1) 04/30/24 17: Plt Count 197 10^3/cmm (157-399) 04/30/24 17: MPV 10.0 fL (7.4-10.4) 04/30/24 17:26 Neut % (Auto) 94.6 % 04/30/24 17: Lymph % (Auto) 4.8 % 04/30/24 17:26 [place] % (Auto) 0.2 % 04/30/24 17: Eos % (Auto) 0.0 % 04/30/24 17:26 Baso % (Auto) 0.2 % 04/30/24 17: Neut # (Auto) 5.16 10^3/uL (1.8-7.7) 04/30/24 17: Lymph # (Auto) 0.3 10^3/uL (0.8-4.8) L 04/30/24 17:26 [place] # (Auto) 0.0 10^3/uL (0.2-0.9) L 04/30/24 17:26 Eos # (Auto) 0.0 10^3/uL (0.0-0.8) 04/30/24 17: Baso # (Auto) 0.0 10^3/uL (0.0-0.1) 04/30/24 17:26 Nucleated RBC % (auto) 0 % 04/30/24 17: Nucleated RBCs # 0.0 /100WBC 04/30/24 17:26 Specimen Type Arterial 04/30/24 17:18 Sample Site Radial, left 04/30/24 17:18 ABG pH 7.51 (7.35-7.45) H 04/30/24 17:18 ABG pCO2 30.5 mmHg (35-45) L 04/30/24 17:18 ABG pO2 64.8 mmHg (80.0-100.0) L 04/30/24 17:18 ABG PO2/FiO2 Ratio 308 04/30/24 17:18 ABG HCO3 24.4 mmol/L (22-26) 04/30/24 17:18 ABG Base Excess 2.2 mmol/L (-2.0-2.0) H 04/30/24 17:18 Gildardo Test Pos 04/30/24 17:18 Hematocrit 44.2 % (42-52) 04/30/24 17:18 Hgb O2 Saturation 93.1 % (95-100) L 04/30/24 17:18 Carboxyhemoglobin 1.0 %THgb (0.4-20.1) 04/30/24 17:18 Methemoglobin 1.1 % (0.4-1.5) 04/30/24 17:18 Total Hemoglobin 14.4 g/dL (14-18) 04/30/24 17:18 O2 Delivery Device Room air 04/30/24 17:18 FiO2 21.0 % 04/30/24 17:18 Belt Cutter ID Pramodci 04/30/24 17:18 Sodium 140 mmol/L (136-145) 04/30/24 17:26 Potassium 3.8 mmol/L (3.5-5.1) 04/30/24 17:26 Chloride 102 mmol/L (98-107) 04/30/24 17:26 Carbon Dioxide 24 mmol/L (22-29) 04/30/24 17:26 Anion Gap 17.8 (5-19) 04/30/24 17:26 BUN 21 mg/dL (6-20) H 04/30/24 17:26 Creatinine 1.4 mg/dL (0.7-1.2) H 04/30/24 17:26 GFR Calculation 59.1 mL/min (90-130) L 04/30/24 17:26 Glucose 91 mg/dL (65-115) 04/30/24 17:26 Calculated Osmolality 293 mOsm/kg (285-295) 04/30/24 17:26 Lactic Acid 2.5 mmol/L (0.5-2.2) H 04/30/24 17:28 Calcium 9.5 mg/dL (8.5-10.5) 04/30/24 17:26 Total Bilirubin 0.8 mg/dL (0.15-1.2) 04/30/24 17:26 AST 223 U/L (0-40) H 04/30/24 17:26 ALT 140 U/L (0-41) H 04/30/24 17:26 Alkaline Phosphatase 121 U/L (40-130) 04/30/24 17:26 Creatine Kinase 105 U/L (39-308) 04/30/24 17:26 Total Protein 7.2 g/dL (6.6-8.7) 04/30/24 17:26 Albumin 4.3 g/dL (3.5-5.2) 04/30/24 17: Globulin 2.9 g/dL (1.3-4.6) 04/30/24 17:26 TSH 3.86 uIU/mL (0.27-4.20) 04/30/24 17:26 Urine Color Dark yellow (Yellow) A 04/30/24 19:36 Urine Appearance Cloudy (CLEAR) A 04/30/24 19:36 Urine pH 6.0 (5-7) 04/30/24 19:36 Ur Specific [place] 1.022 (1.005-1.030) 04/30/24 19:36 Urine Protein 3+ (Negative) A 04/30/24 19:36 Urine Glucose (UA) Negative (Normal) 04/30/24 19:36 Urine Ketones Trace (Negative) 04/30/24 19:36 Urine Blood Negative (Negative) 04/30/24 19:36 Urine Nitrate Negative (Negative) 04/30/24 19:36 Urine Bilirubin 1+ (Negative) H 04/30/24 19:36 Urine Urobilinogen 4.0 mg/dL (Negative) H 04/30/24 19:36 Ur Leukocyte Esterase Trace (Negative) A 04/30/24 19:36 Urine RBC 0-2 /hpf (0-2) 04/30/24 19:36 Urine WBC 6-10 /hpf (0-5) 04/30/24 19:36 Ur Squamous Epith Cells 6-10 /hpf (0-5) 04/30/24 19:36 Amorphous Sediment Not Reportable 04/30/24 19:36 Urine Bacteria None seen /hpf (NONE) 04/30/24 19:36 Hyaline Casts 67.01 /lpf 04/30/24 19:36 Fine Granular Casts 5-10 /lpf H 04/30/24 19:36 Coarse Granular Casts 5-10 /lpf H 04/30/24 19:36 Salicylates < 0.3 mg/dL (3-10) L 04/30/24 17:26 Urine Opiates Screen Negative ng/mL (Negative) 04/30/24 19:36 Acetaminophen < 5.0 ug/mL (10-30) L 04/30/24 17:26 Ur Barbiturates Screen Negative ng/mL (Negative) 04/30/24 19:36 Ur Phencyclidine Scrn Negative ng/mL (Negative) 04/30/24 19:36 Ur Amphetamines Screen Positive ng/mL (Negative) H 04/30/24 19:36 U Benzodiazepines Scrn Negative ng/mL (Negative) 04/30/24 19:36 Urine Cocaine Screen Negative ng/mL (Negative) 04/30/24 19:36 U Marijuana (THC) Screen Positive ng/mL (Negative) H 04/30/24 19:36 Ethyl Alcohol < 10 mg/dL (0-10) 04/30/24 17:26 SARS-CoV-2 Ag (Rapid) negative (Negative) 04/30/24 19:00 All radiology interpretation(s) finalized by discharge EKG Data EKG 1: I personally reviewed and interpreted this EKG as follows: EKG interpretation date: 04/30/24 EKG interpretation time: 17:20 Interpretation: nsr hr [address] elevation qrs 94 [id number] Computer generated interpretation: Chest X-Ray 04/30/24 17:06 IMPRESSION: No acute findings. Head CT 04/30/24 17:06 IMPRESSION: No acute intracranial abnormality. Discharge Plan Discharge Patient Disposition: Home Clinical Impression: Dehydration Condition: Stable Prescriptions: New doxycycline hyclate 100 mg capsule 100 mg PO BID 7 Days Qty: 14 0RF No Action promethazine 25 mg tablet 25 mg PO Q6H PRN (Reason: nausea and vomiting) Qty: 20 0RF Discharge Orders: Discharge ED (Routine); Ordered 04/30/24 Ordered By: Felicity Schreiber Discharge Diet: Usual diet Discharge Activity: Increase activity as tolerated Activity Restrictions/Additional Instructions: Thank you for choosing [facility] for your healthcare needs today. Please realize this is an emergency room and that we are providing you with a medical screening exam and this may not be complete and all inclusive of all the testing and or work up that you may need to determine your ailment or severity of your illness. You have been screened and evaluated and felt safe for discharge. Health conditions do change or evolve sometimes and as such it is important that you follow up with your Primary Doctor to be re checked, 3-5 days is a general good time frame for follow up. You are always welcome to return to the ED for re assessment if your symptoms are worsening or you have new concerns Coding Level of Care Code ED Bottling Machine Operator for Chg Fwd Documented by User: Felicity Schreiber MD 04/30/24 21:04 HPI - General Adult 2 General: Chief complaint: General Medical Stated complaint: unknown sickness Time Seen by Provider: 04/30/24 17:04 Related Data Previous Rx's Medication Instructions Recorded promethazine 25 mg tablet 25 mg PO Q6H PRN nausea and 04/13/24 vomiting #20 tabs doxycycline hyclate 100 mg capsule 100 mg PO BID 7 days #14 caps 04/30/24 Allergies Allergy/AdvReac Type Severity Reaction Status Date / Time No Known Allergies Allergy Verified 12/08/23 21:35 PFSH ED 2 PFSH: Medical History No pertinent past medical history No pertinent family history Social History Smoking and tobacco/nicotine status: never used tobacco/nicotine Alcohol intake: never Substance/Drug Use: never Course 2 Vital Signs: Vital signs: Vital Signs Temperature 99.8 F H 04/30/24 17:18 Pulse Rate 95 04/30/24 20:26 Respiratory Rate 19 H 04/30/24 19:43 Blood Pressure 108/66 04/30/24 20:26 Pulse Oximetry 21 L 04/30/24 20:26 Oxygen Delivery Me thod Room Air 04/30/24 18:00 MDM - General Adult Medical Decision Making Patient presents here with bodyaches also slight headache he does have a low- grade fever here is likely a viral syndrome and give him sepsis bolus checking labs along with urinalysis we will get a head CT patient's pending his labs and imaging and care turned over to Dr. Schreiber at this time Review of lab work Patient care transitioned to ma awaiting labs. Lab work is fairly unremarkable. He does have some renal insufficiency and fluids were given. He is methamphetamine and marijuana positive. He is unsure if he is had any tick exposure but he manage treated with doxycycline to cover atypical type infections he also has some lesions that might be infected on the skin. Doxy to cover this as well. Chest x-ray: No acute process. No infiltrate. No pneumothorax. This was reviewed and interpreted by myself the ER physician. Assessment and plan: Dehydration Fever Malaise - Discharged home - Discussed findings and plan with patient. Answered any questions. - All laboratory values were reviewed and interpreted personally by myself, the ER physician - All imaging was reviewed and interpreted personally by myself, the ER physician. - Evaluation and treatment of this problem were appropriate in the emergency setting Lab Data 04/30/24 17:26 04/30/24 17:26 Radiology Impressions Chest X-Ray 04/30/24 17:06 IMPRESSION: No acute findings. Head CT 04/30/24 17:06 IMPRESSION: No acute intracranial abnormality. Laboratory Results WBC 5.45 10^3/uL (3.29-11.43) 04/30/24 17: RBC 5.52 10^6/uL (3.85-5.65) 04/30/24 17:26 Hgb 15.70 g/dL (11.27-16.99) 04/30/24 17:26 Hct 46.8 % (37-53) 04/30/24 17: MCV 84.8 fl (82-101) 04/30/24 17:26 MCH 28.4 pg (27-33) 04/30/24 17: MCHC 33.5 g/dL (30-55) 04/30/24 17: RDW 12.5 % (12.1-15.1) 04/30/24 17: Plt Count 197 10^3/cmm (157-399) 04/30/24 17: MPV 10.0 fL (7.4-10.4) 04/30/24 17:26 Neut % (Auto) 94.6 % 04/30/24 17:26 Lymph % (Auto) 4.8 % 04/30/24 17: [place] % (Auto) 0.2 % 04/30/24 17: Eos % (Auto) 0.0 % 04/30/24 17: Baso % (Auto) 0.2 % 04/30/24 17: Neut # (Auto) 5.16 10^3/uL (1.8-7.7) 04/30/24 17: Lymph # (Auto) 0.3 10^3/uL (0.8-4.8) L 04/30/24 17:26 [place] # (Auto) 0.0 10^3/uL (0.2-0.9) L 04/30/24 17:26 Eos # (Auto) 0.0 10^3/uL (0.0-0.8) 04/30/24 17:26 Baso # (Auto) 0.0 10^3/uL (0.0-0.1) 04/30/24 17: Nucleated RBC % (auto) 0 % 04/30/24 17: Nucleated RBCs # 0.0 /100WBC 04/30/24 17:26 Specimen Type Arterial 04/30/24 17:18 Sample Site Radial, left 04/30/24 17:18 ABG pH 7.51 (7.35-7.45) H 04/30/24 17:18 ABG pCO2 30.5 mmHg (35-45) L 04/30/24 17:18 ABG pO2 64.8 mmHg (80.0-100.0) L 04/30/24 17:18 ABG PO2/FiO2 Ratio 308 04/30/24 17:18 ABG HCO3 24.4 mmol/L (22-26) 04/30/24 17:18 ABG Base Excess 2.2 mmol/L (-2.0-2.0) H 04/30/24 17:18 Gildardo Test Pos 04/30/24 17:18 Hematocrit 44.2 % (42-52) 04/30/24 17:18 Hgb O2 Saturation 93.1 % (95-100) L 04/30/24 17:18 Carboxyhemoglobin 1.0 %THgb (0.4-20.1) 04/30/24 17:18 Methemoglobin 1.1 % (0.4-1.5) 04/30/24 17:18 Total Hemoglobin 14.4 g/dL (14-18) 04/30/24 17:18 O2 Delivery Device Room air 04/30/24 17:18 FiO2 21.0 % 04/30/24 17:18 Belt Cutter ID [place] 04/30/24 17:18 Sodium 140 mmol/L (136-145) 04/30/24 17:26 Potassium 3.8 mmol/L (3.5-5.1) 04/30/24 17:26 Chloride 102 mmol/L (98-107) 04/30/24 17:26 Carbon Dioxide 24 mmol/L (22-29) 04/30/24 17:26 Anion Gap 17.8 (5-19) 04/30/24 17:26 BUN 21 mg/dL (6-20) H 04/30/24 17:26 Creatinine 1.4 mg/dL (0.7-1.2) H 04/30/24 17:26 GFR Calculation 59.1 mL/min (90-130) L 04/30/24 17:26 Glucose 91 mg/dL (65-115) 04/30/24 17:26 Calculated Osmolality 293 mOsm/kg (285-295) 04/30/24 17:26 Lactic Acid 2.5 mmol/L (0.5-2.2) H 04/30/24 17:28 Calcium 9.5 mg/dL (8.5-10.5) 04/30/24 17:26 Total Bilirubin 0.8 mg/dL (0.15-1.2) 04/30/24 17:26 AST 223 U/L (0-40) H 04/30/24 17:26 ALT 140 U/L (0-41) H 04/30/24 17:26 Alkaline Phosphatase 121 U/L (40-130) 04/30/24 17:26 Creatine Kinase 105 U/L (39-308) 04/30/24 17:26 Total Protein 7.2 g/dL (6.6-8.7) 04/30/24 17:26 Albumin 4.3 g/dL (3.5-5.2) 04/30/24 17:26 Globulin 2.9 g/dL (1.3-4.6) 04/30/24 17:26 TSH 3.86 uIU/mL (0.27-4.20) 04/30/24 17:26 Urine Color Dark yellow (Yellow) A 04/30/24 19:36 Urine Appearance Cloudy (CLEAR) A 04/30/24 19:36 Urine pH 6.0 (5-7) 04/30/24 19:36 Ur Specific [place] 1.022 (1.005-1.030) 04/30/24 19:36 Urine Protein 3+ (Negative) A 04/30/24 19:36 Urine Glucose (UA) Negative (Normal) 04/30/24 19:36 Urine Ketones Trace (Negative) 04/30/24 19:36 Urine Blood Negative (Negative) 04/30/24 19:36 Urine Nitrate Negative (Negative) 04/30/24 19:36 Urine Bilirubin 1+ (Negative) H 04/30/24 19:36 Urine Urobilinogen 4.0 mg/dL (Negative) H 04/30/24 19:36 Ur Leukocyte Esterase Trace (Negative) A 04/30/24 19:36 Urine RBC 0-2 /hpf (0-2) 04/30/24 19:36 Urine WBC 6-10 /hpf (0-5) 04/30/24 19:36 Ur Squamous Epith Cells 6-10 /hpf (0-5) 04/30/24 19:36 Amorphous Sediment Not Reportable 04/30/24 19:36 Urine Bacteria None seen /hpf (NONE) 04/30/24 19:36 Hyaline Casts 67.01 /lpf 04/30/24 19:36 Fine Granular Casts 5-10 /lpf H 04/30/24 19:36 Coarse Granular Casts 5-10 /lpf H 04/30/24 19:36 Salicylates < 0.3 mg/dL (3-10) L 04/30/24 17:26 Urine Opiates Screen Negative ng/mL (Negative) 04/30/24 19:36 Acetaminophen < 5.0 ug/mL (10-30) L 04/30/24 17:26 Ur Barbiturates Screen Negative ng/mL (Negative) 04/30/24 19:36 Ur Phencyclidine Scrn Negative ng/mL (Negative) 04/30/24 19:36 Ur Amphetamines Screen Positive ng/mL (Negative) H 04/30/24 19:36 U Benzodiazepines Scrn Negative ng/mL (Negative) 04/30/24 19:36 Urine Cocaine Screen Negative ng/mL (Negative) 04/30/24 19:36 U Marijuana (THC) Screen Positive ng/mL (Negative) H 04/30/24 19:36 Ethyl Alcohol < 10 mg/dL (0-10) 04/30/24 17:26 SARS-CoV-2 Ag (Rapid) negative (Negative) 04/30/24 19:00 EKG Data EKG 1: Computer generated interpretation: Chest X-Ray 04/30/24 17:06 IMPRESSION: No acute findings. Head CT 04/30/24 17:06 IMPRESSION: No acute intracranial abnormality. Discharge Plan Discharge Patient Disposition: Home Clinical Impression: Dehydration Condition: Stable Prescriptions: New doxycycline hyclate 100 mg capsule 100 mg PO BID 7 Days Qty: 14 0RF No Action promethazine 25 mg tablet 25 mg PO Q6H PRN (Reason: nausea and vomiting) Qty: 20 0RF Discharge Orders: Discharge ED (Routine); Ordered 04/30/24 Ordered By: Felicity Schreiber Discharge Diet: Usual diet Discharge Activity: Increase activity as tolerated Activity Restrictions/Additional Instructions: Thank you for choosing [facility] for your healthcare needs today. Please realize this is an emergency room and that we are providing you with a medical screening exam and this may not be complete and all inclusive of all the testing and or work up that you may need to determine your ailment or severity of your illness. You have been screened and evaluated and felt safe for discharge. Health conditions do change or evolve sometimes and as such it is important that you follow up with your Primary Doctor to be re checked, 3-5 days is a general good time frame for follow up. You are always welcome to return to the ED for re assessment if your symptoms are worsening or you have new concerns Coding Level of Care Code ED Bottling Machine Operator for Blessing Gracia
[2024-04-30 17:29] LABS: ABG PCO2 30.5 mmHg (35-45); ABG PH Result 7.51 (7.35-7.45); Arterial Blood Gas Hematocrit 44.2 % (42-52); Base Excess ABG 2.2 mmol/L (-2.0-2.0); Blood Gas Allen Test Pos; Blood Gas Operator Identificat WALCI; Blood Gas Sample Site Radial, left; Blood Gas Sample Type Arterial; HCO3 ABG 24.4 mmol/L (22-26); HGB O2 Sat 93.1 % (95-100); Methemoglobin 1.1 % (0.4-1.5); Oxygen Device ROOM AIR; PO2 ABG 64.8 mmHg (80.0-100.0); PO2 FiO2 Ratio Arterial Blood 308; Total Hemoglobin 14.4 g/dL (14-18)
[2024-04-30 17:40] LABS: Basophils % 0.2 %; Hematocrit 46.8 % (37-53); Lymphocytes # 0.3 10^3/uL (0.8-4.8); Lymphocytes % 4.8 %; Mean Corpuscular HGB Conc 33.5 g/dL (30-55); Mean Corpuscular Hemoglobin 28.4 pg (27-33); Mean Corpuscular Volume 84.8 fl (82-101); Monocytes % 0.2 %; Neutrophils # 5.16 10^3/uL (1.8-7.7); Neutrophils % 94.6 %; Nucleated Red Blood Cells % 0 %; Platelet Count 197 10^3/cmm (157-399); Red Blood Count 5.52 10^6/uL (3.85-5.65); Red Cell Distribution Width 12.5 % (12.1-15.1); White Blood Count 5.45 10^3/uL (3.29-11.43)
[2024-04-30] MEDS: ketorolac 30 mg/mL INJ IVP (17:41)
[2024-04-30] MEDS: ondansetron 2 mg/ML SDV 2 mL 4 MG IVP (17:41)
[2024-04-30] MEDS: sodium chloride 0.9% 500 ML 999 ML IV (17:43)
[2024-04-30 17:56] LABS: Slide Review Slide Review Perform
[2024-04-30 18:11] LABS: Alanine Aminotransferase 140 U/L (0-41); Albumin Level 4.3 g/dL (3.5-5.2); Alkaline Phosphatase 121 U/L (40-130); Anion Gap 17.8 (5-19); Aspartate Amino Transferase 223 U/L (0-40); Blood Urea Nitrogen 21 mg/dL (6-20); Calcium 9.5 mg/dL (8.5-10.5); Carbon Dioxide 24 mmol/L (22-29); Chloride 102 mmol/L (98-107); Creatine Phosphokinase 105 U/L (39-308); Creatinine Clr Calc Pharmacy 83.7012; Globulin 2.9 g/dL (1.3-4.6); Glomerular Filtration Rate 59.1 mL/min (90-130); Glucose 91 mg/dL (65-115); Osmolality Calculated 293 mOsm/kg (285-295); Potassium 3.8 mmol/L (3.5-5.1); Sodium 140 mmol/L (136-145); Thyroid Stimulating Hormone 3.86 uIU/mL (0.27-4.20); Total Bilirubin 0.8 mg/dL (0.15-1.2); Total Protein 7.2 g/dL (6.6-8.7)
[2024-04-30 18:12] LABS: Lactic Sepsis W/Reflex 2.5 mmol/L (0.5-2.2)
[2024-04-30 18:14] LABS: Acetaminophen < 5.0 ug/mL (10-30); Alcohol Level < 10 mg/dL (0-10); Salicylate < 0.3 mg/dL (3-10)
[2024-04-30 19:30] LABS: SARS Covid-2 Antigen negative (Negative)
[2024-04-30 19:38] LABS: Reflex Lactate Order REFLEX LACTIC ORDERD
[2024-04-30 19:48] LABS: Charge for UA Resulting for Rev
[2024-04-30 19:55] LABS: Bilirubin Urine 1+ (Negative); Blood Urine Negative (Negative); Glucose Urine UA Negative (Normal); Ketones Urine Trace (Negative); Leukocyte Esterase Urine Trace (Negative); Nitrate Urine Negative (Negative); Protein Urine 3+ (Negative); Specific Gravity, Urine 1.022 (1.005-1.030); Urine Appearance Cloudy (CLEAR); Urine Color Dark Yellow (Yellow)
[2024-04-30 19:58] LABS: Bacteria Urine None Seen /hpf; Hyaline Casts Urine 67.01 /lpf; RBC Urine 0-2 /hpf (0-2)
[2024-04-30 20:01] LABS: Amphetamines Screen Urine Positive (Negative); Barbiturates Screen Urine Negative (Negative); Benzodiazepines Screen Urine Negative (Negative); Cocaine Screen Urine Negative (Negative); Opiate Screen Urine Negative (Negative); PCP Screen Urine Negative (Negative); THC Screen Urine Positive (Negative)
[2024-04-30 20:21] LABS: UA Slide Review UA Slide Review Perf
[2024-04-30] MEDS: doxycycline 100 mg Tablet PO (21:14)
[2024-04-30 21:27] LABS: Lactic Acid level (Lactate) 2.3 mmol/L (0.5-2.2)
== END 2024-04-30 21:28 | disposition home or self-care (01) ==
PROVIDERS: Emergency Medicine; Emergency Provider Emergency Medicine
DX: E86.0 Dehydration (principal); Z11.52 Encounter for screening for COVID-19
CPT/HCPCS: 36415; 36600; 70450; 71045; 80053; 80306; 80307; 81003; 81015; 82550; 82805; 83605; 84443; 85025; 87040; 87426; 93005; 96361; 96374; 96375; 99285; J1885; J2405; J7030; J7040

== ENCOUNTER 2025-08-02 02:19 | Emergency (ER) | payer SELFPAY ==
--- OUTSIDE RECORDS SUMMARY | 2025-08-02 02:33 | XMS_ITS | Encounter Summary ---
Author Organization [facility] Address [address] [place] [address] Care Team Providers Care Bulk Receiver Name Role Phone Vin Berry MD, Prateek Arellano Primary Care Pr ovider Encounter Details Date Type Department Care Team (Latest Contact Info) Description 06/03/2006 Outpatient Historical [facility] Orthopedics- 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
--- OUTSIDE RECORDS SUMMARY | 2025-08-02 02:33 | XMS_ITS | Encounter Summary ---
Author Organization [facility] Address [address] [place] [address] Care Team Providers Care Travel Registered Nurse Oncology Name Role Phone Vin Berry MD, Prateek Arellano Primary Care Pr ovider Encounter Details Date Type Department Care Team (Latest Contact Info) Description 07/11/2006 Outpatient Historical [facility] Orthopedics- 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
--- OUTSIDE RECORDS SUMMARY | 2025-08-02 02:33 | XMS_ITS | Clinical Summary ---
Author Organization [facility]abella tone Address [address] [address] Care Team Providers Care Organic Section Technical Lead Name Role Phone Vin Berry MD, Prateek Arellano Primary Care Pr ovider Immunizations Immunization Administration Dates Next Due (M-M-R II/PRIORIX)(12 MO UP) MEASLES, MUMPS AND RUBELLA VIRUS VACCINE, 0.5 ML IM/SUBCUT 05/20/1997,06/03/1996 Dt Dtp Dtap Vaccine 01/16/2007, 6,05/20/1997,01/19,07/29/1996,06/03/1996,1993 HIB, Unspecified Formulation 06/03/1996,04/20/19 93 Hepatitis A Vaccine 03/28/2007,07/09/2006 Hepatitis B Vaccine 01/19/1997, 7,07/29/1996,04/20 IPV/OPV 05/20/1997,06/03/1996,1993 Meningococcal A Conjugate Vaccine IM 03/28/2007 Social History Tobacco Use Types Packs/Day Years Used Date Smoking Tobacco: Never Assessed Sex and Gender Information Value Date Recorded Sex Assigned at Not on file 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 Gender Identity Not on file Sexual Orientation Not on file Plan of Treatment Health Maintenance Due Date Last Done Comments DTAP/TDAP/TD VACCINES (7 - Tdap) 01/16/2017 01/16/2007, 07/09/2006, 05/20/1997, Additional history exists HPV VACCINES (1 - 3-dose SCD M series) 02/15/2020 INFLUENZA VACCINE (#1) 2025 HEPATITIS B VACCINES Completed 01/19/1997, 09/21/1996, 07/29/1996, Additional history exists [place] Care Teams Organic Section Technical Lead Relationship Specialty Start Date End Date Vin Berry, Prateek Arellano MD [address] [place] [phone] PCP - General 06/26/03
[2025-08-02 02:34] VITALS: BP 127/79; PULSE 80; RESP 16; TEMP 36.6; O2SAT 96; BMI 30.5
--- OUTSIDE RECORDS SUMMARY | 2025-08-02 02:34 | XMS_ITS | Encounter Summary ---
Author Organization [facility] Address [address] [place] [address] Care Team Providers Care Logistics Loss Prevention Manager Name Role Phone Vin Berry MD, Prateek Arellano Primary Care Pr ovider Encounter Details Date Type Department Care Team (Latest Contact Info) Description 06/26/2003 Inpatient Historical [facility] Emergency Department [address] [place] [phone] Pan Campos MD [facility] [place] [address] OPEN WOUND NECK NEC-COMPL (Primary Dx) Social History Tobacco Use Types Packs/Day Years Used Date Smoking Tobacco: Never Assessed Sex and Gender Information Value Date Recorded Sex Assigned at Not on file 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
--- OUTSIDE RECORDS SUMMARY | 2025-08-02 02:34 | XMS_ITS | Clinical Summary ---
[facility] Organization [facility] Address [address] [facility] Attn: [place] [address] Care Team Providers Care Family Protection Specialist Name Role Phone Unavailable Primary Care Provider Unavailabl e Allergies No known active allergies Medications cyclobenzaprine (FLEXERIL) 10 mg tablet Take 1 Tablet (10 mg) by mouth 3 times daily as needed for Spasm or Pain. 21 Tablet 07/17/2024 Active Immunizations Immunization Administration Dates Next Due (M-M-R II/PRIORIX)(12 MO UP) MEASLES, MUMPS AND RUBELLA VIRUS VACCINE, 0.5 ML IM/SUBCUT 05/20/1997,06/03/1996 Dt Dtp Dtap Vaccine 01/16/2007, 6,05/20/1997,01/19,07/29/1996,06/03/1996,1993 HIB, Unspecified Formulation 06/03/1996,04/20/19 93 Hepatitis A Vaccine 03/28/2007,07/09/2006 Hepatitis B Vaccine 01/19/1997, 7,07/29/1996,04/20 IPV/OPV 05/20/1997,06/03/1996,1993 Meningococcal A Conjugate Vaccine IM 03/28/2007 Social History Tobacco Use Types Packs/Day Years Used Date Smoking Tobacco: Never Tobacco Cessation:Counseling Given: Not Answered Alcohol Use Standard Drinks/Week Comments Never 0 (1 standard drink = 0.6 oz pur e alcohol) Feeling Safe Answer Date Recorded Are you in a relationship wi th someone who hurts you emotionally and/or physically? 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 Gender Identity Not on file Sexual Orientation Not on file Last Filed Vital Signs Vital Sign Reading Time Taken Comments Blood Pressure 128/88 07/17/2024 7:00 PM CDT Pulse 81 07/17/2024 7:00 PM CDT Temperature 36.1 C (97 F) 07/17/2024 6:42 PM CDT Respiratory Rate 18 07/17/2024 6:42 PM CDT Oxygen Saturation 97% 07/17/2024 7:00 PM CDT Inhaled Oxygen Concentration - - Weight 85.5 kg (188 lb 9.6 oz) 07/17/2024 6:42 P M CDT Height 182.9 cm (6') 07/17/2024 6:42 PM CDT Body Mass Index 25.58 07/17/2024 6:42 PM CDT Plan of Treatment Health Maintenance Due Date Last Done Comments DTAP/TDAP/TD VACCINES (7 - Tdap) 01/16/2017 01/16/2007, 07/09/2006, 05/20/1997, Additional history exists HPV VACCINES (1 - 3-dose SCD M series) 02/15/2020 INFLUENZA VACCINE (#1) 2025 HEPATITIS B VACCINES Completed 01/19/1997, 09/21/1996, 07/29/1996, Additional history exists
--- OUTSIDE RECORDS SUMMARY | 2025-08-02 02:34 | XMS_ITS | Encounter Summary ---
Author Organization [facility] Address [address] [place] [address] Care Team Providers Care Flight Crew Time Clerk Name Role Phone Vin Berry MD, Prateek Arellano Primary Care Pr ovider Encounter Details Date Type Department Care Team (Late st Contact Info) Description 05/31/2006 Emergency [facility] Emergency Department [address] [place] [phone] Joan Son MD NO ADDRESS ON FILE Closed Fracture of Unspecified Bone(s) of Foot (except Toes) (Primary Dx) Social History Tobacco Use Types Packs/Day Years Used Date Smoking Tobacco: Never Assessed Sex and Gender Information Value Date Recorded Sex Assigned at Not on file 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 Indication: Pain and swelling status post injury. Comparison: None. Findings: A transverse avulsion type fracture involving the base of the fifth metatarsal isidentified. The patient is skeletally immature. No additional osseous or soft tissue abnormality isidentified. Impression: 1. Transverse avulsion fracture through the base of the fifth metatarsal. - Dictated By: Brianne Puga M.D. Electronically Signed By: Brianne Puga M.D. Date Signed: 06/02/06 AMA Procedure Note 08/05/2009 Right Foot, 05/31/2006. Indication: Pain and swelling status post injury. Comparison: None. Findings: A transverse avulsion type fracture involving the base of the fifthmetatarsal isidentified. The patient is skeletally immature. No additional osseous or soft tissue abnormalityisidentified. Impression: 1. Transverse avulsion fracture through the base of the fifth metatarsal. - Dictated By: Brianne Puga M.D. Electronically Signed By: Brianne Puga M.D. Date Signed: 06/02/06 AMA Joan Son MD DIAGNOSTIC IMAGING ORDERABLE S Final Result documented in this encounter Visit Diagnoses Diagnosis Closed fracture of unspecified bone(s) of foot (except toes)- Primary documented in this encounter Care Teams Flight Crew Time Clerk Relationship Specialty Start Date End Date Prateek Banuelos Jr., MD [address] [place] [phone] PCP - General 06/26/03 documented as of this encounter
[2025-08-02 03:19] VITALS: RESP 17; O2SAT 96
[2025-08-02] MEDS: oxyCODONE-APAP 5-325 mg Tablet 2 TAB PO (03:19)
[2025-08-02] MEDS: tetracaine 0.5% Op Soln 4 mL Btl 1 DROP EYE-BOTH (03:20)
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
== END 2025-08-02 03:45 | disposition home or self-care (01) ==
PROVIDERS: Emergency Provider Emergency Medicine
DX: H16.133 Photokeratitis, bilateral (principal)
CPT/HCPCS: 99283; J9999

== ENCOUNTER 2025-08-06 03:20 | Emergency (ER) | payer SELFPAY ==
[2025-08-06 03:26] VITALS: BP 106/80; PULSE 79; RESP 18; TEMP 36.6; O2SAT 97; BMI 27.1
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
--- OUTSIDE RECORDS SUMMARY | 2025-08-06 03:28 | XMS_ITS | Clinical Summary ---
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 Gender Identity Not on file Sexual Orientation Not on file Plan of Treatment Health Maintenance Due Date Last Done Comments DTAP/TDAP/TD VACCINES (7 - Tdap) 01/16/2017 01/16/2007, 07/09/2006, 05/20/1997, Additional history exists HPV VACCINES (1 - 3-dose SCD M series) 02/15/2020 INFLUENZA VACCINE (#1) 2025 HEPATITIS B VACCINES Completed 01/19/1997, 09/21/1996, 07/29/1996, Additional history exists Insurance [place] Care Teams Searchlight Operator Relationship Specialty Start Date End Date Vin Berry, Prateek Arellano MD [address] [place] [phone] PCP - General 06/26/03
--- OUTSIDE RECORDS SUMMARY | 2025-08-06 03:28 | XMS_ITS | Encounter Summary ---
Author Organization [facility] Address [address] [place] [address] Care Team Providers Care Head Animal Keeper Name Role Phone Vin Berry MD, Prateek Arellano Primary Care Pr ovider Encounter Details Date Type Department Care Team (Latest Contact Info) Description 06/03/2006 Outpatient Historical 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
--- OUTSIDE RECORDS SUMMARY | 2025-08-06 03:28 | XMS_ITS | Encounter Summary ---
Author Organization [facility] Address [address] [place] [address] Care Team Providers Care Bi Manager Name Role Phone Vin Berry MD, Prateek Arellano Primary Care Pr ovider Encounter Details Date Type Department Care Team (Latest Contact Info) Description 07/11/2006 Outpatient Historical [facility] [address] [place] 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
--- OUTSIDE RECORDS SUMMARY | 2025-08-06 03:28 | XMS_ITS | Clinical Summary ---
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
--- OUTSIDE RECORDS SUMMARY | 2025-08-06 03:28 | XMS_ITS | Encounter Summary ---
Author Organization [facility] Address [address] [place] [address] Care Team Providers Care Telecommunicator Name Role Phone Vin Berry MD, Prateek Arellano Primary Care Pr ovider Encounter Details Date Type Department Care Team (Late st Contact Info) Description 05/31/2006 Emergency [facility] Emergency [facility] [address] [place] [phone] Joan Son MD NO ADDRESS ON FILE Closed Fracture of Unspecified Bone(s) of Foot (except Toes) (Primary Dx) Social History Tobacco Use Types Packs/Day Years Used Date Smoking Tobacco: Never Assessed Sex and Gender Information Value Date Recorded Sex Assigned at Not on file 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
[2025-08-06] MEDS: tetracaine 0.5% Op Soln 4 mL Btl 1 DROP EYE-BOTH (03:43)
[2025-08-06] MEDS: oxyCODONE 5 mg IR Tab/Cap PO (04:03)
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
[2025-08-06 04:43] VITALS: PULSE 66; O2SAT 95
[2025-08-06 04:54] VITALS: BP 106/80; PULSE 64; RESP 18; O2SAT 95
== END 2025-08-06 04:57 | disposition home or self-care (01) ==
PROVIDERS: Emergency Provider Student in an Organized Health Care Education/Training Program
DX: H16.133 Photokeratitis, bilateral (principal)
CPT/HCPCS: 99283; J9999